=== PATIENT | female | born 2000 | race Caucasian/White ===

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

== ENCOUNTER 2021-04-02 10:25 | Emergency (ER) | payer OTHER, SELFPAY ==
[2021-04-02 10:28] VITALS: BP 146/89; PULSE 100; RESP 16; TEMP 36.6; O2SAT 100
[2021-04-02 10:50] LABS: Basophils Percent Auto 0.2 % (0.2-1.2); Eosinophils Percent Auto 0.5 % (0-4.4); Hematocrit 40.4 % (37.0-47.0); Hemoglobin 13.7 g/dL (12.0-15.0); Immature Granulocyte Absolute 0.02 K/mm3 (0.00-0.031); Immature Granulocyte Percent A 0.3 % (0-0.5); Lymphocytes Percent Auto 22.3 % (18.3-44.2); Mean Corpuscular HGB Conc 33.9 g/dl (32-36); Mean Corpuscular Hemoglobin 31.1 pg (26-34); Mean Corpuscular Volume 91.6 fl (80-100); Mean Platelet Volume 10.5 fl (7.4-10.4); Monocytes Absolute Auto 0.4 K/mm3 (0.1-0.6); Monocytes Percent Auto 5.7 % (2.6-8.5); Neutrophils Absolute Auto 4.5 K/mm3 (1.3-6.7); Platelet Count Result 206 k/mm3 (150-375); Red Blood Count 4.41 M/mm3 (4.2-5.4); Red Cell Distribution Width 12.7 % (11.5-14.5); White Blood Count 6.3 K/mm3 (4.5-10.0)
[2021-04-02 11:02] LABS: Alanine Aminotransferase 21 U/L (4-35); Albumin Level 4.2 g/dL (3.5-5.1); Alkaline Phosphatase 46 U/L (38-126); Anion Gap 11 mmol/L (8-16); Aspartate Amino Transferase 21 U/L (14-36); Bilirubin,Total 0.4 mg/dL (0.2-1.3); Blood Urea Nitrogen 5 mg/dL (7-17); Calcium 9.1 mg/dL (8.4-10.2); Carbon Dioxide 21 mmol/L (22-30); Chloride 104 mmol/L (98-107); Estimated CRCL calculation 143 ml/min; Estimated Glomerular Filt Rate > 60; Glucose 98 mg/dL (65-110); Lipase 32 U/L (23-300); Sodium 136 mmol/L (137-145)
[2021-04-02 11:29] LABS: Add Urine Microscopic? YES; Appearance Urine Cloudy (Clear); Bacteria Urine Trace /hpf; Bilirubin Urine Negative (Negative); Blood Urine Negative (Negative); Color Urine Yellow (Yellow); Glucose Urine UA Negative (Negative); Ketones Urine Negative (Negative); Leukocyte Esterase Ur Trace LEU/UL (Negative); Mucus Urine Rare /lpf; Nitrate Urine Negative (Negative); Protein Urine Negative (Negative); Squamous Epithelial Cell Urine Few /hpf (Few); Urobilinogen Urine Negative mg/dL (<2.0); WBC Urine 0-3 /hpf
--- NOTE | 2021-04-02 11:29 | ED.GENADULT ---
HPI - General Adult General Chief complaint: Nausea/Vomiting/Diarrhea Stated complaint: 8 weeks - N/V and cant eat Time Seen by Provider: 04/02/21 11:04 Source: patient Mode of arrival: ambulatory Limitations: no limitations History of Present Illness HPI narrative: Patient is here due to nausea and vomiting associated with . She states that the only thing she can keep down her fruit snacks. She last vomited last night because she has not eaten today. She was seen at [facility] with a positive test at 4 weeks and she had a positive test at home. She has a an appointment with her java scala developer on April 07. This is her third , she states that she had hyperemesis with her first, and significant nausea with her second. Onset (ago): day(s) Exacerbating factors: eating and other (smells) Associated symptoms: denies other symptoms Treatments prior to arrival: none Related Data Allergies Allergy/AdvReac Type Severity Reaction Status Date / Time amoxicillin Allergy Unknown Hives Verified 09/22/19 12:56 Penicillins Allergy Unknown Hives Verified 09/22/19 12:56 Review of Systems Review of Systems: All systems reviewed & are unremarkable except as noted in HPI and below PMFSH Family History Family History Father Asthma Social History Social History Smoking status: Never smoker Second hand tobacco smoke exposure: No Alcohol intake: never Substance use: never Spiritual care concerns: No Exam Const: General: no acute distress and alert Orientation/consciousness: patient oriented x3 HENMT: Head: normal to inspection Eyes: Pupils: Equal, round and reactive pupils present Resp: Effort & Inspection: normal respiratory effort Auscultation: clear to auscultation bilaterally Cardio: Rate: regular rate Rhythm: regular rhythm GI: GI Palp: Yes Soft to palpation Auscultation: normal bowel sounds : General: Yes no CVA tenderness Skin: General skin exam: normal color Neuro: General: patient oriented x3 Extrem: General: normal to inspection Psych: Mental Status: mental status grossly normal Course Course Emergency Course: Patient's OB has given her recommendations for nausea already. Recommend that she follow those recommendations and follow-up as scheduled. Eat small meals, avoid caffeinated beverages and sugary beverages. Stay well-hydrated. Patient has eaten some ishmael crackers and soda and is doing well and is ready to be discharged. Vital Signs Vital signs: Vital Signs Temperature 36.6 C 04/02/21 10:28 Pulse Rate 100 04/02/21 10:28 Respiratory Rate 16 04/02/21 10:28 Blood Pressure 146/89 H 04/02/21 10:28 Pulse Oximetry 100 04/02/21 10:28 Temperature 36.6 C 04/02/21 10:28 Pulse Rate 100 04/02/21 10:28 Respiratory Rate 16 04/02/21 10:28 Blood Pressure 146/89 H 04/02/21 10:28 Pulse Oximetry 100 04/02/21 10:28 Medical Decision Making Vital Signs Vital Signs: Vital Signs Temperature 36.6 C 04/02/21 10:28 Pulse Rate 100 04/02/21 10:28 Respiratory Rate 16 04/02/21 10:28 Blood Pressure 146/89 H 04/02/21 10:28 Pulse Oximetry 100 04/02/21 10:28 Temperature 36.6 C 04/02/21 10:28 Pulse Rate 100 04/02/21 10:28 Respiratory Rate 16 04/02/21 10:28 Blood Pressure 146/89 H 04/02/21 10:28 Pulse Oximetry 100 04/02/21 10:28 Lab Data Result diagrams: 04/02/21 10:36 04/02/21 10:36 Labs: Lab Results 04/02/21 04/02/21 04/02/21 Range/Units 10:36 10:36 10:36 WBC 6.3 (4.5-10.0) K/mm3 RBC 4.41 (4.2-5.4) M/mm3 Hgb 13.7 D (12.0-15.0) g/dL Hct 40.4 (37.0-47.0) % MCV 91.6 (80-100) fl MCH 31.1 (26-34) pg MCHC 33.9 (32-36) g/dl RDW 12.7 (11.5-14.5) % Plt Count 206 (150-375) k/mm3 MPV 10.5 H (7.4-10.4) fl Immature Gr
[2021-04-02] MEDS: SODIUM CHLORIDE 0.9% IV 1,000 ML 999 ML IV CONT (12:21)
[2021-04-02 12:24] VITALS: BP 115/65; PULSE 79; RESP 16; O2SAT 100
[2021-04-02 14:49] VITALS: BP 106/58; PULSE 77; RESP 16; O2SAT 100
== END 2021-04-02 14:49 | disposition home or self-care (01) ==
PROVIDERS: Emergency Provider Emergency Medicine
DX: O21.0 Mild hyperemesis gravidarum (principal)
CPT/HCPCS: 36415; 80053; 81001; 81025; 83690; 85025; 96360; 99283; J7030

== ENCOUNTER 2021-11-24 08:59 | Emergency (ER) | payer OTHER, SELFPAY ==
[2021-11-24 09:05] VITALS: BP 140/98; PULSE 59; RESP 20; TEMP 37; O2SAT 100
--- NOTE | 2021-11-24 09:44 | ED.SKABFB ---
HPI - Skin/Abscess/Foreign Bdy General Chief complaint: Skin/Abscess/Foreign Body Stated complaint: fb vagina Time Seen by Provider: 11/24/21 09:11 Source: patient Mode of arrival: ambulatory Limitations: no limitations History of Present Illness HPI narrative: This is a 21-year-old female that presents to the emergency department for possible foreign body in the vagina. Reports having intercourse early this morning. They were unable to find the condom, so she was concerned it may be stuck in her vagina. She does not report any pain or discomfort. Reports she thought that she smelled latex which prompted her to be seen to be sure she did not have a condom retained. Denies fever or dysuria. Related Data Allergies Allergy/AdvReac Type Severity Reaction Status Date / Time amoxicillin Allergy Unknown Hives Verified 11/24/21 09:10 Penicillins Allergy Unknown Hives Verified 11/24/21 09:10 Review of Systems Review of Systems: CONSTITUTIONAL: Denies fever GENITOURINARY: Denies dysuria All systems reviewed & are unremarkable except as noted in HPI and below PMFSH Past Medical History Medical History (Updated 11/24/21 @ 09:52 by Rosemarie Castillo PA-C) No active medical problems Family History Family History Father Asthma Social History Social History Smoking status: Never smoker Second hand tobacco smoke exposure: No Alcohol intake: never Substance use: never Spiritual care concerns: No Exam Narrative: GENERAL: Well-appearing, well-nourished, and in no acute distress. HEAD: Normocephalic, atraumatic. EYES: EOMI. EXTREMITIES: Normal range of motion. No edema. SKIN: Warm, dry, no rash. NEURO: No focal deficits. Alert and oriented x3. PSYCH: Normal mood and affect PELVIC: Normal external genitalia. The cervix appears normal. Small amount of clear cervical discharge. There are no foreign bodies noted in the vaginal vault Course Vital Signs Vital signs: Vital Signs Temperature 98.6 F 11/24/21 09:05 Pulse Rate 59 L 11/24/21 09:05 Respiratory Rate 11/24/21 09:05 Blood Pressure 140/98 H 11/24/21 09:05 Pulse Oximetry 100 11/24/21 09:05 Oxygen Delivery Room Air 11/24/21 09:05 Temperature 98.6 F 11/24/21 09:05 Pulse Rate 59 L 11/24/21 09:05 Respiratory Rate 20 11/24/21 09:05 Blood Pressure 140/98 H 11/24/21 09:05 Pulse Oximetry 100 11/24/21 09:05 Oxygen Delivery Room Air 11/24/21 09:05 MDM - Skin/Abscess/Foreign Bdy MDM Narrative Medical decision making narrative: Patient presents to the emergency department for a possible retained foreign body. She denies any pain or discomfort, but reports they could not find the condom to use last night so she was concerned it may be stuck inside her. No foreign bodies are noted on exam. Pelvic exam is normal. Patient was instructed to follow-up with her refueling ramp attendant for any further problems. She was given warnings to return to the ER Critical Care Time Critical Care Time Critical Care Time: No Discharge Plan Discharge Clinical Impression: Normal pelvic exam Patient Disposition: Home, Self-Care Condition: Stable Additional Instructions: Return to the emergency department for fevers, pelvic pain, pain or burning with urination, or any other symptoms that are concerning to you Follow-up with your refueling ramp attendant if needed Prescriptions: No Action polysaccharide iron complex 150 mg iron Capsule 150 mg PO BIDWM Qty: 60 1RF Follow-up/Referrals: PHYSICIAN NOT ON STAFF,NONSTAFF [Primary Care Provider] -
== END 2021-11-24 10:10 | disposition home or self-care (01) ==
PROVIDERS: Emergency Provider Emergency Medicine
DX: Z04.89 Encounter for examination and observation for other specified reasons (principal)
CPT/HCPCS: 99282

== ENCOUNTER 2022-02-05 20:39 | Emergency (ER) | payer OTHER, SELFPAY ==
--- NOTE | ~2022-02-05 | XR_ITS ---
EXAMINATION: XR chest 2V DATE: 02/05/2022 21:06 INDICATION: Chest pain, shortness of breath and left arm pain TECHNIQUE: PA and lateral views of the chest were obtained. COMPARISON: Chest radiograph dated 03/27/2020 FINDINGS: The lungs remain clear with no focal airspace opacities, pulmonary edema, pleural effusion or pneumot horax. The cardiomediastinal silhouette is normal. Visualized bones and soft tissues are unremarkable . IMPRESSION: 1. No acute cardiopulmonary disease. Reviewed, dictated and finalized at location A.
--- NOTE | 2022-02-05 20:42 | ECG_ITS ---
Measurements Intervals [place] Rate: 72 P: 22 NC: 128 QRS: 28 QRSD: 87 T: 30 QT: 389 QTc: 426 Interpretive Statements SINUS RHYTHM WITH SINUS ARRHYTHMIA BASELINE ARTIFACT- III, AVR, AVF, V3 NORMAL ECG NO PREVIOUS ECG AVAILABLE FOR COMPARISON Electronically Signed On 02-06-2022 6:48:02 CDT by Beau Hayden D.O.
[2022-02-05 20:51] VITALS: BP 141/99; PULSE 77; RESP 20; TEMP 36.9; O2SAT 100
[2022-02-05 20:56] LABS: Basophils Percent Auto 0.3 % (0.2-1.2); Eosinophils Absolute Auto 0.2 K/mm3 (0-0.3); Eosinophils Percent Auto 2.3 % (0-4.4); Hematocrit 38.9 % (37.0-47.0); Hemoglobin 12.6 g/dL (12.0-15.0); Immature Granulocyte Absolute 0.02 K/mm3 (0.00-0.031); Immature Granulocyte Percent A 0.3 % (0-0.5); Lymphocytes Percent Auto 32.7 % (18.3-44.2); Mean Corpuscular HGB Conc 32.4 g/dl (32-36); Mean Corpuscular Hemoglobin 28.1 pg (26-34); Mean Corpuscular Volume 86.8 fl (80-100); Mean Platelet Volume 10.8 fl (7.4-10.4); Monocytes Absolute Auto 0.4 K/mm3 (0.1-0.6); Monocytes Percent Auto 5.8 % (2.6-8.5); Neutrophils Absolute Auto 4.1 K/mm3 (1.3-6.7); Neutrophils Percent Auto 58.6 % (45.5-73.1); Platelet Count Result 269 k/mm3 (150-375); Red Blood Count 4.48 M/mm3 (4.2-5.4); Red Cell Distribution Width 14.6 % (11.5-14.5)
--- NOTE | 2022-02-05 21:16 | PC.NURSE ---
Addendum entered by Ivone Ponce RN 02/05/22 21:33: Pt came to intake nurse and stated that she has 2 kids at home and would not be able to stay for results. Pt a&Ox4, resp even non-labored, ambulatory with steady gait. No obvious distress noted. Pt verbalized understanding to come back if s/s persist or worsen. Original Note: Pt came to intake nurse a
[2022-02-05 21:27] LABS: Alanine Aminotransferase 12 U/L (6-35); Albumin Level 4.4 g/dL (3.5-5.1); Alkaline Phosphatase 55 U/L (38-126); Aspartate Amino Transferase 28 U/L (14-36); Bilirubin,Total 0.3 mg/dL (0.2-1.3); Blood Urea Nitrogen 13 mg/dL (7-17); Calcium 9.2 mg/dL (8.4-10.2); Carbon Dioxide 24 mmol/L (22-30); Chloride 106 mmol/L (98-107); Estimated CRCL calculation 112 ml/min; Estimated Glomerular Filt Rate > 60; Glucose 97 mg/dL (65-110); Potassium 3.7 mmol/L (3.4-5.0)
[2022-02-05 21:48] LABS: Anion Gap 6 mmol/L (8-16); Sodium 136 mmol/L (137-145)
== END 2022-02-05 21:16 | disposition left against medical advice (07) ==
PROVIDERS: Emergency Provider Emergency Medicine; PCP Orthopaedic Surgery
DX: R09.02 Hypoxemia (principal)
CPT/HCPCS: 36415; 71046; 80053; 85025; 93005; 99199

== ENCOUNTER 2024-01-28 16:23 | Emergency (ER) | payer OTHER, SELFPAY ==
[2024-01-28 16:30] VITALS: BP 115/85; PULSE 78; RESP 16; TEMP 36.6; O2SAT 98
--- NOTE | 2024-01-28 17:01 | ED.DENTAL ---
HPI - Dental/Oral General Chief complaint: Dental/Oral Stated complaint: right side face swollen Time Seen by Provider: 01/28/24 17:01 Mode of arrival: ambulatory Limitations: no limitations History of Present Illness HPI Narrative: 23-year-old female presents with concern for right lower dental pain. Reports she has had a broken tooth in that area for some time. Reports she recently started having facial swelling in that area and dental pain. Reports she took ibuprofen which decreased the swelling. MD Complaint: tooth pain Related Data Allergies Allergy/AdvReac Type Severity Reaction Status Date / Time amoxicillin Allergy Unknown Hives Verified 02/05/22 20:54 Penicillins Allergy Unknown Hives Verified 02/05/22 20:54 Review of Systems Review of Systems: CONSTITUTIONAL: Denies malaise, chills, sweats, or fever. EYES: Denies visual changes ENT: Denies rhinorrhea, congestion, sinus pain, otalgia or sore throat. Reports right lower dental pain, jaw swelling CARDIOVASCULAR: Denies chest pain, palpitations RESPIRATORY: Denies cough or dyspnea. SKIN: Denies rash or itching. MUSCULOSKELETAL: Denies myalgia. NEUROLOGIC: Denies numbness, weakness, or headache. All systems reviewed & are unremarkable except as noted in HPI and below PMFSH Past Medical History Medical History (Updated 01/28/24 @ 17:04 by Nereida Barahona NP) No active medical problems Family History Family History Father Asthma Social History Social History Smoking status: Never smoker Second hand tobacco smoke exposure: No Alcohol intake: never Substance use: never Spiritual care concerns: No Comments At time of signature, agree with nursing past medical, surgical, social and family history. There is no relevant family history pertinent to the presenting complaint Exam Narrative: GENERAL: Well-appearing, well-nourished, and in no acute distress. HEAD: Normocephalic, atraumatic. EYES: PERRLA, sclera clear ENT: Nares clear, turbinates pink, no rhinorrhea or epistaxis. Mucous membranes moist. TM pearly shaffer with sharp light reflex bilaterally; no tragal tenderness. Oropharynx without erythema or lesions. Tonsils not enlarged and without exudate. To is number 29 broken with surrounding erythema, no periapical or gingival abscesses noted. Very mild right jaw swelling noted NECK: Supple. No lymphadenopathy. CHEST: No respiratory distress. Speaks in full sentences. HEART: Regular rate and rhythm. SKIN: Warm, dry, no visible rash. NEURO: Alert and oriented x3. PSYCH: Normal mood and affect Course Course Emergency Course: Patient is aware of diagnosis, understands and agrees to treatment plan. Anticipatory guidance given. Patient agrees to follow-up as directed and is aware of reasons to seek care at the emergency department. Portions of this record may have been created with voice recognition software Level of Care: Express Care Visit Vital Signs Vital signs: Vital Signs Temperature 98 F 01/28/24 16:30 Pulse Rate 78 01/28/24 16:30 Respiratory Rate 16 01/28/24 16:30 Blood Pressure 115/85 01/28/24 16:30 Pulse Oximetry 98 01/28/24 16:30 Oxygen Delivery Room Air 01/28/24 16:30 Temperature 98 F 01/28/24 16:30 Pulse Rate 78 01/28/24 16:30 Respiratory Rate 16 01/28/24 16:30 Blood Pressure 115/85 01/28/24 16:30 Pulse Oximetry 98 01/28/24 16:30 Oxygen Delivery Room Air 01/28/24 16:30 Reviewed. MDM - Dental/Oral MDM Narrative Medical decision making narrative: I evaluated this in the [facility] care. History is obtained from patient who is an independent historian and physical exam was performed.? Available medical records were reviewed. ? Exam findings and relevant testing show no acute concerns or changes; patient is non-toxic appearing and is in no distress. Patients
== END 2024-01-28 17:13 | disposition home or self-care (01) ==
PROVIDERS: Emergency Provider Nurse Practitioner
DX: K08.89 Other specified disorders of teeth and supporting structures (principal)
CPT/HCPCS: 99213; G0463

== ENCOUNTER 2024-09-17 15:24 | Emergency (ER) | payer OTHER, SELFPAY ==
--- OUTSIDE RECORDS SUMMARY | 2024-09-17 15:26 | XMS_ITS | Encounter Summary ---
Author Organization [facility] Address [address] 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 Social History Tobacco Use Types Packs/Day Years Used Date Smoking Tobacco: Never Assessed Comments Unknown Sex and Gender Information Value Date Recorded Sex Assigned at Not on file Legal Sex Female 11:42 AM CDT Gender Identity Not on file Sexual Orientation Not on file documented as of this encounter Plan of Treatment Not on file documented as of this encounter Procedures Procedure Name Priority Date/Time Associated Diagnosis Comments QUANTIFERON-TB GOLD PLUS Routine 01/26/2024 10:00 AM CDT Encounter for pre-employment examination documented in this encounter Results * QUANTIFERON-TB GOLD PLUS (01/26/2024 10:00 AM CDT) NIL CONTROL 0.02 <8.01 IU/mL 01/28/2024 9:54 AM CDT [facility] TB ANTIGEN 1 0.03 <0.35 IU/mL 01/28/2024 9:54 AM CDT [facility] TB ANTIGEN 2 0.00 <0.35 IU/mL 01/28/2024 9:54 AM CDT [facility] MITOGEN CONTROL 9.98 >0.49 IU/mL 01/28/20 9:54 AM CDT [facility] INTEPRETATION TB NEGATIVE NEGATIVE, NEGATIVE (TB antigen response less than 25% of internal negative control value) 01/28/2024 9:54 AM CDT [facility] Comment:No immune response t o Mycobacterium tuberculosis antigens was noted. M. tuberculosis infection unlikely. Blood No Phlebotomy Charged / Unknown 01/26/2024 10:00 AM CDT 01/26/2024 12:32 PM CDT Narrative [facility] - 01/28/2024 9:54 AM CDT A POSITIVE QUANTIFERON-TB GOLD PLUS RESULT SHOULD NOT BE THE SOLE OR DEFINITIVE BASIS FOR DETERMINING INFECTION WITH M.TUBERCULOSIS. Diagnosing or excluding tuberculosis disease, and assessing the probability of LTBI, requires a combination of epidemiological, historical, medical and diagnostic findings (e.g., acid fast bacilli (AFB) smear and culture, chest xray) that should be taken into account when interpreting QFT-Plus results. Furthermore, the magnitude of the measured gamma interferon level cannot be correlated to stage or degree of infection, level of immune responsiveness, or likelihood for progression to active disease. The Nil control adjusts for background (e.g., elevated levels of circulating gamma interferon or presence of heterophile antibodies). The Mitogen control serves as an internal positive control and verifies each specimen tested can produce a gamma interferon response. Low mitogen may occur with insufficient lymphocytes, reduced lymphocyte activity due to improper specimen handling, filling/mixing of the mitogen tube, or inability of the patient's lymphocytes to generate gamma interferon. Infection with other Mycobacteria, including M. kansasii, M. szulgai, and M. marinum, may cause false positive results. A negative QuantiFERON-TB Gold Plus result does not preclude the possibility of M. tuberculosis infection or tuberculosis disease: false negative results can be due to incorrect blood sample collection/ improper handling of the specimen, stage of infection (e.g., specimen obtained prior to the development of cellular immune response), co-morbid conditions which affect immune function, or other individual immunological factors. The minimum number of lymphocytes required for a reliable test has not been established and may also be variable. Diagnostic testing for Mycobacterium tuberculosis using Interferon Gamma Release Assays should follow applicable published guidelines, including when testing in populations such as children, women, and HIV-infected or otherwise immunocompromised individuals. https://www.cdc.gov/tb/publications/guidelines/testing.htm [place] Panda Navarrete [facility] IMMUNOLOGY ORDERABLES Final Result [facility] [address] [place] [address], documented in this encounter Visit Diagnoses Diagnosis Encounter for pre-employment examination Health examination of defined subpopulation documented in this encounter Care Teams Educational Resource Coordinator Relationship Specialty Start Date End Date Provider, Unknown UNKNOWN PCP - General 01/26/24 documented as of this encounter
--- OUTSIDE RECORDS SUMMARY | 2024-09-17 15:26 | XMS_ITS | CONTINUITY OF CARE DOCUMENT ---
Author Name linus barriga Address Unknown Organization [facility] Address [address] [place] [address] Phone [phone] Care Team Providers Care Heel Cementer Name Role Phone Byron Ponce MD Unavailable [phone] Byron Ponce MD Unavailable [phone] INSURANCE PROVIDERS Payer name Policy type / Coverage type Adia red libertarian ID [employer] [facility] Medicaid [id number]
--- OUTSIDE RECORDS SUMMARY | 2024-09-17 15:26 | XMS_ITS | Clinical Summary ---
Author Organization [facility] Address [address] [place] [address] Phone Care Team Providers Care Manager Revenue Name Role Phone Provider, Unknown Primary Care Provider Unavaila ble Social History Tobacco Use Types Packs/Day Years Used Date Smoking Tobacco: Never Assessed Comments Unknown Sex and Gender Information Value Date Recorded Sex Assigned at Not on file Legal Sex Female 11:42 AM CDT Gender Identity Not on file Sexual Orientation Not on file Plan of Treatment Health Maintenance Due Date Last Done Comments Hepatitis C Virus (HCV) Screening 2000 Hepatitis B Immunization (2 of 3 - 3-dose series) 2000 2000 Human Papillomavirus (HPV) Immunization (1 - 3-dose series) 09/15/2015 Meningococcal B Immunization (1 of 2 - Standard) 2016 Pap Smear 2021 Influenza Immunization (#1) 02/06/202406/07, 03/18/2015 SARS-COV-2 Immunization ( season) 2024 Respiratory Syncytial Virus (RSV) Immunization (Adult) (1 - 1-dose 75+ series) 09/15/2075 Pneumococcal Immunization Combined Aged Out 2000 No longer eligible b ased on patient's age to complete this topic TdaP Immunization Completed 09/01/2021, 07/04/2015 Meningococcal Immunization (ACWY) Aged Out No longer eligible b ased on patient's age to complete this topic Rotavirus Immunization Aged Out No lo nger eligible based on patient's age to complete this topic Care Teams Manager Revenue Relationship Specialty Start Date End Date Provider, Unknown UNKNOWN PCP - General 01/26/24
--- OUTSIDE RECORDS SUMMARY | 2024-09-17 15:29 | XMS_ITS | Clinical Summary ---
Author Organization [facility] Address [address] [place] [address] Care Team Providers Care Nurse Sane Name Role Phone Arturo Lion MD Primary Care Provider [phone] Source Comments [facility],non-owned Affiliates and Associated Physician Practices is amultiple site organization consisting of ambulatory clinics and hospital sitesin [place], [place], [place] and [place]. This disclosure is being madepursuant to the Care Everywhere program and may not contain all information available regarding this patient. Last updated 18.[facility] Allergies Active Allergy Reactions Criticality Noted Date Comments Amoxicillin Rash Low 07/14/2012 Medications * Be aware that medications may not be up to date on this document. Alwaysverify current medications with the patient. 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 Gender Identity Not on file Sexual Orientation Not on file Plan of Treatment Health Maintenance Due Date Last Done Comments PAP SMEAR 2000 HIV SCREENING 09/15/2015 HPV VACCINE (1 - 3-dose series) 09/15/2015 CHLAMYDIA/GONORRHEA SCREENING 2016 MENINGOCOCCAL (Group B) VACC INE SHARED DECISION-MAKING (1 of 2 - Standard) 2016 HEPATITIS C SCREENING 09/10/2018 DTAP/TDAP/TD VACCINES (1 - Tdap) 09/15/2019 HEPATITIS B VACCINE (1 of 3 - 19+ 3-dose series) 09/15/2019 COVID-19 VACCINE ( - 2023-2 5 season) 2024 DEPRESSION SCREENING 06/07/2024 INFLUENZA VACCINE (Season Ended) 2025 ZOSTER VACCINE (1 of 2) 2050 HIB VACCINE Aged Out No longer eligi ble based on patient's age to complete this topic MENINGOCOCCAL GROUPS A/C/Y/W VACCINE Aged Out No longer eligible b ased on patient's age to complete this topic PNEUMOCOCCAL VACCINE Aged Out No long er eligible based on patient's age to complete this topic Insurance [employer] Care Teams Nurse Sane Relationship Specialty Start Date End Date Arturo Lion MD [address] [place] [address] PCP - General Family Medicine 07/14/12
--- OUTSIDE RECORDS SUMMARY | 2024-09-17 15:29 | XMS_ITS | Data Portability ---
Author Organization [facility] [place] Address [address] [place] [address] Assessment Encounter Date Assessment Date Assessment LastModified by Organization Details LastModified Time 09/22/2019 09/22/2019 Patient is ___weeks . Discussed plan. [email or web address] Not available 09/22/2019 09:41:10 07/03/2020 07/03/2020 STD testing done per patient preference Rx: diflucan will restart ocp. microgestin sent. encouraged condoms. Will notify with any abnormal results Call office if symptoms worsening or not improving with treatment Follow up for WWE in 1 year [email or web address] Not available 07/03/2020 12:24:02 Plan of Treatment Reminders Order Date Submit Date Provider Last Modified By Organization Details Last Modified Time Details Appointments None recorded. Lab CT + NG DNA, PCR, unspecifie d specimen 2020 021 [place] [facility] ([facility]), [address], [place], [address], 09:06:31 Referral None recorded. Procedures None recorded. Surgeries None recorded. Imaging None recorded. Medication Orders Diflucan 150 mg tablet 2020 021 [id number], [address] [place] [address], [address], 12:21:17 Microgesti n FE 06/26 (28) 1 mg-20 mcg (21)/75 mg (7) tablet 2020 021 [email or web address] [id number], [address], [place], [address], 22:37:16 Loestrin Fe 06/26 (28-Day) 1 mg-20 mcg (21)/75 mg (7) tablet 2019 [facility]20 [id number], [address], [place], [place], [id number], 12:02:49 Patient TargetsNo targets recorded. Patient InstructionsNo instructions recorded. Reason for Referral None Reported. Results Created Date Observation Date Name Description Value Unit Range Abnormal Flag Note LastModifiedBy Organization Detail LastModifiedTime 09/13/1909/14/2019 prena mildred panel WBC 7.1 K/uL 3.8-11 .5 Not Available [facility] ([facility]) [address] [place] [address] Dr Contreras, [place], [address], 2019 17:05:53 09/13/1909/14/2019 prena mildred panel red blood cell count (RBC) 4.03 M/mm3 3.60-5 .30 Not Available [facility] ([facility]) [address] [place] [address] Dr Contreras, [place], [address], 2019 17:05:53 09/13/1909/14/2019 prena mildred panel hemoglobin (HGB) 12.5 gm/dL 11.5-1 5.5 Not Available [facility] ([facility]) [address] [place] [address] Dr Contreras, [place], [address], 2019 17:05:53 09/13/19 20 2019 prena mildred panel hematocrit (HCT) 37.9 % 35.2-4 6.4 Not Available [facility] ([facility]) [facility] [address], [place], [address], 2019 17:05:53 09/13/19 20 2019 prena mildred panel MCV 94.0 fL 79.0-9 9.0 Not Available [facility] ([facility]) [address] [place] [address] Dr Contreras, [place], [address], 2019 17:05:53 09/13/19 20 2019 prena mildred panel MCH 31.0 pg 26.9-3 5.0 Not Available [facility] ([facility]) [address] [place] [address] Dr Contreras, [place], [address], 2019 17:05:53 09/13/19 20 2019 prena mildred panel MCHC 33.0 g/dL 30.4-3 4.8 Not Available [facility] ([facility]) [address] [place] [address] Dr Contreras, [place], [address], 2019 17:05:53 09/13/1909/14/2019 prena mildred panel RDW 43.0 fL 38.6-5 3.8 Not Available [facility] ([facility]) [address] [place] [address] Dr Contreras, [place], [address], 2019 17:05:53 09/13/1909/14/2019 prena mildred panel platelet count 235 K/cum m 137-39 7 Not Available [facility] ([facility]) [address] [place] [address] Dr Contreras, [place], [address], 2019 17:05:53 09/13/19 20 2019 prena mildred panel neutrophils automated 72.0 % 41.0-7 7.0 Not Available [facility] ([facility]) [address] [place] [address] Dr Contreras, [place], [address], 2019 17:05:53 09/13/19 20 2019 prena mildred panel lymphocytes automated 21.7 % 14.0-4 8.0 Not Available [facility] ([facility]) [address], [place], [address], 2019 17:05:53 09/13/19 20 2019 prena mildred panel monocytes automated 5.4 % 4.0-13 .0 Not Available [facility] ([facility]) [address], [place], [address], 2019 17:05:53 09/13/19 20 2019 prena mildred panel eosinophils automated 0.3 % 0.0-8. 0 Not Available [facility] ([facility]) [facility] [address], [place], [address], 2019 17:05:53 09/13/19 20 2019 prena mildred panel basophils automated 0.3 % 0.0-1. 5 Not Available [facility] ([facility]) [address] [place] [address] Dr Contreras, [place], [address], 2019 17:05:53 09/13/19 20 2019 prena mildred panel immature granulocyte automated 0.3 % 0.0-1. 0 Not Available [facility] ([facility]) [address] [place] [address] Dr Contreras, [place], [address], 2019 17:05:53 09/13/19 20 2019 prena mildred panel ABO type, blood bank A Not Available [facility] ([facility]) [address] [place] [address] Dr Contreras, [place], [address], 2019 17:05:53 09/13/19 20 2019 prena mildred panel Rh typing, blood bank POSITI VE RH testi ng resul ts (RH Posit arielle/R H Negat arielle) are depen dent upon reage nt formu latio ns, techn ical perfo rmanc e of assay , and testi ng platf orm or metho dolog y. With the elimi natio n of routi ne testi ng for the weak expre ssion of the D antig en, some patie nts who have previ ously been class ified as RH Posit arielle many now be repor marie as RH Negat arielle, or rarel y, vice versa . If you have any quest ions regar ding this test, pleas e call our Clien t Servi vj depar tment . Not Available [facility] ([facility]) [facility] [address], [place], [address], 2019 17:05:53 09/13/1909/14/2019 prena mildred panel antibody screen, reflex to identificati on NEGATI VE negati ve Not Available [facility] ([facility]) [address] [place] [address] Dr Contreras, [place], [address], 2019 17:05:53 09/13/19 20 2019 prena mildred panel rubella antibody, IgG 68.9 IU/mL >9.9 INTER PRETA TION OF RESUL TS < 10.0 Non-i mmune /Non- react arielle >= 10.0 Immun e/Willow ctive Prese nce of antib odies to Rubel la is presu mptiv e evide nce of immun ity excep t when acute infec tion is suspe cted. Not Available [facility] ([facility]) [facility] [address], [place], [address], 2019 17:05:53 09/13/19 20 2019 prena mildred panel hemoglobin A1C 4.5 % <5.7 The follo wing HbA1c range s recom kasia d by the Alonzo ceballos Diabe lillian Assoc iatio n (ADA) may be used as an aid in the diagn osis of diabe lillian melli tus. HA1c Sugge sted Diagn osis >=6.5 % Diabe tic 5.7% - 6.4% Pre-D iabet ic <5.7% Non-D iabet ic Not Available [facility] ([facility]) [address] [place] [address] Dr Contreras, [place], [address], 2019 17:05:53 09/13/19 20 2019 prena mildred panel HIV 1/2 Ab screen w/p24ag Nonrea ctive nonrea ctive Not Available [facility]) [address] [place] [address] Dr Contreras, [place], [address], 2019 17:05:53 09/13/19 20 2019 prena mildred panel hepatitis B surface antigen (HBsAg) Nonrea ctive nonrea ctive Not Available [facility] ([facility]) [address] [place] [address] Dr [address]reras, [place], [address], 2019 17:05:53 09/13/19 20 2019 prena mildred panel hepatitis C antibody (HCV) IgG Nonrea ctive nonrea ctive Not Available [facility] ([facility]) [address] [place] [address] Dr [address]reras, [place], [address], 2019 17:05:53 09/13/19 20 2019 prena mildred panel syphilis screening profile, treponemal antibody Nonrea ctive nonrea ctive Not Available [facility] ([facility]) [address] [place] [address] Dr Contreras, [place], [address], 2019 17:05:53 09/13/19 20 2019 estim ated avera ge gluco se estimated average glucose 82 mg/dL [place] ge Gluco se is calcu lated using the equat ion AG = (28.7 x HgbA1 c) - 46.7 based on the guide lines estab ang terrell by the ADA. Not Available [facility] ([facility]) [address], [place], [address], 2019 17:05:53 09/13/1909/15/2019 cultu re, urine specimen source Urine - Not Specif ied Not Available [facility] ([facility]) [facility] [address], [place], [address], 09/19/2019 09:16:28 09/13/1909/15/2019 cultu re, urine culture, urine See Below See Micro biolo gy Repor t Not Available [facility] ([facility]) [facility] [address], [place], [address], 09/19/2019 09:16:28 09/13/1909/15/2019 cultu re, urine escherichia coli >100,0 00 CFU/ml Escher ichia coli Not Available [facility] ([facility]) [facility] [address], [place], [address], 09/19/2019 09:16:28 09/13/1909/15/2019 cultu re, urine sensitivity panel See Below ___ Organ ism E. coli Antib iotic INTER P ___ Amika medhat S Amp/S ulbac meier S Ampic illin S Aztre onam S Cefaz soraida S Cefep thong S Cefox itin S Cefta zidim e S Ceftr iaxon e S Cefur oxime S Cipro floxa medhat S Ertap enem S Genta micin S Imipe nem S Levof loxac in S Merop enem S Nitro furan toin S Piper acill in/Ta zo S Tetra cycli ne S Tigec yclin e S Tobra mycin S Trime th/Wisdom lfa S __ S=LUIS A CEPTI BLE I=INT ERMED IATE R=RES ISTAN T Not Available [facility]) [address] [place] [address], [place], [address], 09/19/2019 09:16:28 09/13/1909/13/2019 drug scree n, urine Amphetamines : negati ve Not Available [place] [address], [place], [address], 09/13/2019 12:46:16 09/13/1909/13/2019 drug scree n, urine Cannabinoids : negati ve Not Available [place] [address], [place], [address], 09/13/2019 12:46:16 09/13/1909/13/2019 drug scree n, urine Cocaine: negati ve Not Available [place] [address], [place], [address], 09/13/2019 12:46:16 09/13/19 20 09/13/2019 drug scree n, urine Opiates: negati ve Not Available [place] [address], [place], [address], 09/13/2019 12:46:16 09/13/19 20 09/13/2019 drug scree n, urine Phenocyclidi ne: negati ve Not Available [place] [address], [place], [address], 09/13/2019 12:46:16 09/13/19 20 09/13/2019 drug scree n, urine Barbiturates : negati ve Not Available [place] [address], [place], [address], 09/13/2019 12:46:16 09/13/19 20 09/13/2019 drug scree n, urine Benzodiazepi ada: negati ve Not Available [place] [address], [place], [address], 09/13/2019 12:46:16 09/22/19 20 09/25/2019 strep tococ cus group B DNA GB specimen source Vagina l/Rect al Not Available [facility] ([facility]) [address], [place], [address], 09/25/2019 12:06:14 09/22/19 20 09/25/2019 strep tococ cus group B DNA spec type Cultur e Swab Not Available [facility] ([facility]) [address], [place], [address], 09/25/2019 12:06:14 09/22/19 20 09/25/2019 strep tococ cus group B DNA group B strep by PCR NOT DETECT ED not detect ed Inter preta tion: A posit arielle resul t indic ates the detec tion of Group B Strep tococ cus DNA but not neces saril y the prese nce of viabl e organ isms; it is presu mptiv e for the prese nce of Group B Strep tococ cus. A negat arielle resul t does not exclu de the possi bilit y of infec tion since very low level s of micro organ ism or sampl ing error may cause a false negat arielle resul t. This assay is highl y accur ate, but rare false posit arielle and false negat arielle resul ts may occur . Metho dolog y: This resul t was deter mined using the FDA-c leare d BD Max GBS Assay . The BD Max GBS Assay is a quali tativ e in vitro diagn ostic test for the rapid detec tion of Group B Strep tococ cus (GBS) DNA in vagin al/re ctal speci mens from prepa rtum or intra partu m women utili zing real- time PCR. Perfo rmed by [facility]a [facility], [address], [place] [address] , Manolo Pulliam ra, DO, Labor atory Dire tor. Not Available [facility]) [address], [place], [address], 09/25/2019 12:06:14 08/14/19 21 08/13/2020 beta- HCG, quant itati ve, serum or plasm a B-HCG <0.2 mIU/m L This assay was perfo rmed using [employer] reage nts and test kits. Value s obtai ramon with other assay metho ds or kits canno t be used inter cid eably . Refer ence Range s: Non-p regna nt, preme nopau gen women : 0.0-5 .3 mIU/m L Preme nopau gen women : 0.0-7 .0 mIU/m L Stephany l Pregn mitchell: Gesta neida l Age bHCG Conc. - mIU/m L 3 Weeks 5.8 - 71.7 4 Weeks 9.5 - 750 5 Weeks 217-7 138 6 Weeks 158 - 31,79 5 7 Weeks 3,697 - 162,5 63 8 Weeks 32,06 5 - 149,5 71 9 Weeks 63,80 3 - 151,4 10 10 Weeks 46,50 9 - 186,9 77 12 Weeks 27,83 2 - 210,6 12 14 Weeks 13,95 0 - 62,53 0 15 Weeks 12,03 9 - 70,97 1 16 Weeks 9,040 - 56,45 1 17 Weeks 8,175 - 55,86 8 18 Weeks 8,099 - 58,17 6 Not Available [facility] (Lab) [address], [place], [address], 08/14/2020 14:11:58 08/14/19 21 08/13/2020 beta- HCG, quant itati ve, serum or plasm a B-HCG <0.2 mIU/m L This assay was perfo rmed using [employer] reage nts and test kits. Value s obtai ramon with other assay metho ds or kits canno t be used inter cid eably . Refer ence Range s: Non-p regna nt, preme nopau gen women : 0.0-5 .3 mIU/m L Preme nopau gen women : 0.0-7 .0 mIU/m L Stephany l Pregn mitchell: Gesta neida l Age bHCG Conc. - mIU/m L 3 Weeks 5.8 - 71.7 4 Weeks 9.5 - 750 5 Weeks 217-7 138 6 Weeks 158 - 31,79 5 7 Weeks 3,697 - 162,5 63 8 Weeks 32,06 5 - 149,5 71 9 Weeks 63,80 3 - 151,4 10 10 Weeks 46,50 9 - 186,9 77 12 Weeks 27,83 2 - 210,6 12 14 Weeks 13,95 0 - 62,53 0 15 Weeks 12,03 9 - 70,97 1 16 Weeks 9,040 - 56,45 1 17 Weeks 8,175 - 55,86 8 18 Weeks 8,099 - 58,17 6 Not Available [facility] (Lab) [address], [place], [address], 08/15/2020 09:49:53 09/16/19 20 09/13/2019 US, obste tric, 2nd or 3rd trime ster No observ ation record ed. [email or web address] Not Available 0 09/19/2019 18:03:49 Result Notes None recorded. Problems Name Problem SNOMED Code Status Onset Date Resolution Date Notes Provider Name and Address Organization Details Recorded Time Pregnanc y, childbir th and puerperi um finding Completed 201407/03/2020 Encounte r for supervis ion of normal first pregnanc y, second trimeste r;Record ed Elsewher e: No Locat ion: [facility] S ource: EHR Md Do [facility] christiano: N Practi ce ID: 0001 Eric lable Time: 04:45:00 PM Kimberley maxwell [facility] 1 12:03:18 Pregnanc y, childbir th and puerperi um finding Completed 201507/03/2020 Encounte r for supervis ion of normal first pregnanc y, third trimeste r;Record ed Elsewher e: No Locat ion: [facility] S ource: EHR Md [facility]: N Practi ce ID: 0001 Eric lable Time: 04:30:00 PM Kimberley maxwell [facility] 1 12:03:20 Speciali zed medical examinat ion Completed 201407/03/2020 Gynecolo gical Examinat ion;Juan José rded Elsewher e: No [facility]: N Practi ce ID: 0001 Eric lable Time: 11:00:00 AM Kimberley maxwell [facility] 1 12:03:27 Lochia finding Completed 201507/03/2020 Encounte r for routine postpart um follow-u p;Record ed Elsewher e: No Locat ion: [facility] S ource: EHR Md [facility]: N Practi ce ID: 0001 Eric lable Time: 02:30:00 PM Kimberley maxwell [facility] 1 12:03:14 Antenata l screenin g Completed 201407/03/2020 ANTENATA L SCREENIN G NEC;Juan José rded Elsewher e: No Locat ion: [facility] rodolfo [facility] S ource: EHR Md Do [facility]: N Practi ce ID: 0001 Eric lable Time: 04:00:00 PM Kimberley maxwell [facility] 1 12:03:09 Amenorrh ea [id number] Completed 201407/03/2020 Absence of menstrua tion;Rec orded Elsewher e: No Locat ion: [facility] S ource: EHR Md [facility]: N Practi ce ID: 0001 Eric lable Time: 11:00:00 AM Kimberley maxwell [facility] 1 12:03:08 Pregnanc y test positive [id number] Completed 201407/03/2020 Pregnanc y examinat ion or test, positive result;R ecorded Elsewher e: No Locat ion: [facility] S ource: EHR Md Do [facility]: N Practi ce ID: 0001 Eric lable Time: 11:00:00 AM Kimberley maxwell [facility] 1 12:03:17 Primigra ayana [id number] Completed 201407/03/2020 Supervis ion of normal first pregnanc y;Record ed Elsewher e: No Locat ion: [facility] S ource: EHR Md [facility]: N Practi ce ID: 0001 Eric lable Time: 10:30:00 AM Kimberley maxwell [facility] 1 12:03:24 Prematur e rupture of membrane s [id number] Completed 201507/03/2020 Full-ter m cristin ROM, unsp time betw rupture and onset labor;Pr actice ID: 0001 Kimberley maxwell [facility] 1 12:03:21 Gestatio n period, 38 weeks [id number] Completed 201507/03/2020 38 weeks gestatio n of pregnanc y;Practi ce ID: 0001 [facility] 12:03:11 Term pregnanc y delivere d [id number] Completed 201507/03/2020 Encounte r for full-ter m uncompli cated delivery ;Practic e ID: 0001 Kimberley Jurado [facility], [facility] 1 12:03:29 Single live [id number] Completed 201507/03/2020 Single live ;Pr actice ID: [address] [facility] 1 12:03:25 Pregnanc y [id number] Completed 201905/22/[address] [facility] 0 16:39:58 Late entry into care [id number] Completed [address] [facility] 0 16:39:55 Obesity [id number] Completed 201909/19/2019 Reviewed with SB- not really obese. No need for NSTs. Olivia Saunders [facility] 0 11:55:15 Late entry into care [id number] Completed 201907/03/[address] [facility] 1 12:03:12 Problem Notes None recorded. Procedures Surgical History None recorded. Imaging Results Imaging Date Name Status LastModified by Organiz ation Details LastModified Time 09/13/2019 US, obstetric, 2nd or 3rd trimester completed axel Information not available 09/19/2019 18:03:49 Procedure Notes None recorded. Medical Equipment None Reported. Allergies Allergen ID Allergen Name Allergen Category Reaction Reaction Severity Criticality Documentation Date Start Date Code Code System Note Provider Name and Address Organization Details Recorded Time 47 amoxicill in medicatio n Not available Not available Not available 09/13/2019 723 RxNorm Елена Martell h[place], [place] - [facility] 0 12:17:52 Medications Name Sig Start Date Stop Date Status Note LastModified by Organization Details LastModified Time cyclobenz aprine 10 mg tablet TAKE ONE TABLET BY MOUTH 3 TIMES DAILY 07/03 completed Not Available Not Available Not Available azithromy medhat 250 mg tablet 09/12 completed Not Available Not Available Not Available ibuprofen 800 mg tablet TAKE 1 TABLET BY MOUTH EVERY 8 HOURS NEEDED FOR PAIN AND INFLAMMA TION 07/03 completed Not Available Not Available Not Available Lidocaine Viscous 2 % mucosal solution PLEASE SEE ATTACHED FOR DETAILED DIRECTIO NS 07/03 completed Not Available Not Available Not Available fluconazo le 150 mg tablet TAKE 1 TABLET BY MOUTH ONCE FOR ONE DOSE active Not Available Not Available No t Available clindamyc in HCl 150 mg capsule TAKE 3 CAPSULES BY MOUTH 3 TIMES A DAY active Tooth infectio n Not Available Not Available Not Available Macrobid 100 mg capsule take 1 capsule by oral route every 12 hours with food 07/03 completed Prescrib ed Elsewher e: No Locat ion: [facility] M odify By: sailaja barajas DateTime : 02/26/20 15 04:34:15 PM Not Available Not Available Not Available cephalexi n 500 mg capsule Take 1 capsule twice a day by oral route for 7 days. 12/06 completed Not Available Not Available Not Available oseltamiv ir 75 mg capsule 09/12 completed Not Available Not Available Not Available Vitamin D2 1,250 mcg (50,000 unit) capsule take 1 capsule by oral route every week 07/03 completed Prescrib ed Elsewher e: No Locat ion: [facility] M odify By: sailaja barajas DateTime : 06/13/19 16 02:56:55 PM Not Available Not Available Not Available griseoful elijah ultramicr osize 250 mg tablet active Not Available Not Available No t Available 06/26 (28) 1 mg-20 mcg (21)/75 mg (7) tablet TAKE 1 TABLET BY MOUTH EVERY DAY active Not Available Not Available No t Available WHITESMITH-PNV-DH A 28 mg iron-1 mg-200 mg capsule take 1 capsule by oral route every day 07/03 completed Prescrib ed Elsewher e: No Locat ion: [facility] M odify By: cmedical Encount er DateTime : 01/19/20 15 03:35:33 PM Not Available Not Available Not Available Vitals Date Recorded Body height Body mass index (BMI) Body mass index (BMI) Percentile per age and sex Body weight Systolic blood pressure Diastolic blood pressure Provider Name and Address Organization Details Last Updated DateTime 0 162.56 cm 35.9 kg/m2 98 % 19561.8 0533 g 110 mm[Hg] 72 mm[Hg] Елена Martell [facility] 0 09:45:22 Date Recorded Body height Body mass index (BMI) Percentile per age and sex Body mass index (BMI) Systolic blood pressure Diastolic blood pressure Provider Name and Address Organization Details Last Updated DateTime 12/07/2019 162.56 cm 97 % 34.3 kg/m2 127 mm[Hg] 82 mm[Hg] [facility] 0 12:48:11 Date Recorded Body weight Provider Name an d Address Organization Details Last Updated DateTime 12/07/2019 33677.474 g Blas Lim [facility] 05/22/2020 16:39:55 Date Recorded Body height Body mass index (BMI) Percentile per age and sex Body mass index (BMI) Body weight Systolic blood pressure Diastolic blood pressure Provider Name and Address Organization Details Last Updated DateTime 0 162.56 cm 98 % 35.9 kg/m2 43900.8 0533 g 120 mm[Hg] 79 mm[Hg] [facility] 0 10:25:11 Date Recorded Body height Body mass index (BMI) Percentile per age and sex Body mass index (BMI) Body weight Systolic blood pressure Diastolic blood pressure Provider Name and Address Organization Details Last Updated DateTime 0 162.56 cm 98 % 36 kg/m2 97038.3 977 g 111 mm[Hg] 71 mm[Hg] Aisha Asher [facility] 0 10:19:10 Date Recorded Body height Body mass index (BMI) Percentile per age and sex Body mass index (BMI) Body weight Systolic blood pressure Diastolic blood pressure Provider Name and Address Organization Details Last Updated DateTime 1 162.56 cm 98 % 37.6 kg/m2 77461.7 3 g 119 mm[Hg] 83 mm[Hg] Kimberley Jurado [facility] 1 12:02:46 Social History Question Answer Notes LastModified by [employer] Details LastModified Time Tobacco Smoking Status Never Smoker Not Available [facility] 04/09/2020 03:28:11 What Is Your Level Of Alcohol Consumption? None [id number] Information not available 04/09/2020 Sex: Unknown Functional Status Question Answer Note LastModified by [employer] Details LastModified Time What is your exercise level? Occasional walking [id number] Information not available 04/09/2020 Mental Status None recorded. Family History Relationship Description Onset Age of this Age Resolved Age Notes LastModified by Organization Details LastModified Time Father Asthma [email or web address] Not available 08:58:30 Maternal Grandmother Diabetes mellitus [email or web address] Not available 2019 08:58:42 Notes:Father: Asthma Materna l grandmother: Diabetes mellitus Medical History No medical history recorded. Gynecological History Statement/Question Response Date of Last Pap Smear Current Control Method None Date of LMP 06/19/2020 LMP Approximate Obstetrics History GPAL:G 2 P 2 0 0 2 Type Value Full Term 2 Living 2 Total 2 Past Encounters Encounter ID Performer Location Encounter Start Date Encounter Closed Date Diagnosis/Indication Diagnosis SNOMED-CT Code Diagnosis ICD10 Code Diagnosis Note [id number] Shai Macias MD [place] [address] [address] 09/13/2019 11:32:51 09/13/2019 14:30:13 Routine care 825706430 Z34.83 [id number] Shai Macias MD [place] [address],[place] [address] 09/22/2019 09:35:13 09/22/2019 10:38:35 Routine care 463199168 Z34.90 [id number] [address],[place] [address] 09/28/2019 10:15:11 09/28/2019 11:35:38 Routine care 153684707 Z34.93 RTC for routine visit in 1 week. [id number] Rayneestee [address]oc[address] [place] [address],[place] [address] 10/05/2019 09:58:01 10/05/2019 16:56:03 Routine care 272950526 Z34.93 [id number] [place] [address],[place] [address] 12/07/2019 12:23:07 12/07/2019 14:51:09 state 30573266 Z39.2 Continue to watch for signs/symp toms of post depression . Return one year from last pap smear for a well woman exam. Patient received above instructio ns, and questions have been answered. If you have any questions please call or respond to this email. Patient was made aware of the patient portal and may obtain a paper copy of today's plan if desired. [facility] care management 201902251 Z30.9 Discussed all control options in great detail. Pt would like to start ocp. She is aware of the risks and benefits. She does not have any medical condition that is contraindi cated with the use of estrogen containing control. Pt will start her pills on the first wednesday following the start of her period. She is aware it is not effective for control the first month. She is also aware of the importance of taking at the same time every day. Encouraged use of condoms as the pill does not protect against STD's. Will return in 3 months for med check. Consent was read and signed. Pt verbalized understand [place]. [id number] Jacklyn Hawkins MD [place] [address],[place] [address] 07/03/2020 11:48:10 07/03/2020 12:47:13 Candidal vulvovaginitis 90452106 B37.3 Initial pr escription of oral contraception 092589124 Z30.011 Venereal d isease screening 560922467 Z11.3 Health Concerns Section Related Observation LastModified by Organization Detai ls LastModified Time None Recorded Concern Status LastModified by Organization Details LastModified Time None Recorded Advance Directives Directive None Recorded Payers Encounter Date Sequence Insurance Name Policy Number Policy Lau Covered Member ID Lau Member ID Guarantor Name 09/22/2019 1 [employer] [id number] Vin Torres [id number] Shant Melissa 09/28/2019 1 [employer] [id number] Vin Torres [id number] Shant Torres 10/05/2019 1 [employer] [id number] Vin Torres [id number] Shant Torres 12/07/2019 1 [employer] [id number] Vin Torres [id number] Shant Melissa 07/03/2020 1 [employer] [facility] ON OR AFTER 05/07/2020 (MEDICAID REPLACEMENT - HMO) Shant Torres [id number] Shant Torres Notes Date Note Type Note Provider Name and Address Organization Details Recorded Time 09/28/2019 text/html Generic HPI TemplateReported bypatient.Notes:Noemi cagle Rayne maxwell [facility] 10/02/2019 09:49:44 12/07/2019 text/html VisitReported bypatient.Notes:PP 5-5. Bleeding stopped. Period resumed. Bottle feeding. Doing well. Rayne maxwell [facility] 12/07/2019 13:19:58 07/03/2020 text/html Pt is a 19yo G2P 2002 here complaining of feeling like there is TP sticking in her vagina but there isn't. Feels like something is sitting at opening. Since yesterday. Denies page, some itching. Additional concerns: sexually active:yes contraception:none. started ocp in December, after 2 mos insurance wouldn't cover that one. wants to restart. Last annual exam: none Jacklyn Hawkins MD [address], [place], [address], [place] [facility] 07/03/2020 12:24:42 OBGyn Episode Ob Episode Information Episode Created Date Number of Fetuses Patient Bloodtype Patient rh Status Prepregnancy Weight lbs Domestic Partner Domestic Partner Phone Father Name Manager Drive Status 09/13/19 20 1 CLOSED Fetus Data First Name Last Name Admitted to NICU Weight (g) Sex Living Outcome Pediatric Complications Fetus ID Race Codes Race Delivery Type 3543.46 0704 Full Term 123 Vaginal Delivery Gideon Calculation Initial Gideon Date Initial Exam Date Initial Exam Provider Initial Ultrasound Date Last Menstrual Period Date Ultra Sound Weeks Gestation 0 Eighteen To Twenty Week Gideon Update Ultra Sound Date Fundal Height At Umbil Quickening Date Ultra Sound Latest Weeks Gestation Final Gideon Confirmed By Final Gideon Confirmed Date Final Gideon Date Ultra Sound Latest Days Gestation 0 0 Menstrual History Last Menstrual Date Menses Monthly On Bcp Conception Prior Menses Frequency Hcg Plus Date Menarche Onset Age Delivery Information Delivery Date Delivery Type Labor Anesthesia Weeks Gestation Incision Type Labor Labor Length Hrs Delivered By Post Complications Tubal Sterilization Discharge Date Comments 6 false Discharge Information Feeding Method Contraceptive Method Maternal HG B and HCT Levels Ob Episode Information Episode Created Date Number of Fetuses Patient Bloodtype Patient rh Status Prepregnancy Weight lbs Domestic Partner Domestic Partner Phone Father Name Manager Drive Status 09/13/19 20 1 A Positive CLOSED Fetus Data First Name Last Name Admitted to NICU Weight (g) Sex Living Outcome Pediatric Complications Fetus ID Race Codes Race Delivery Type 3118.44 5 F true Full Term [email or web address] [id number] Forcep Assisted Vaginal Delivery Problems Problem Notes LMP 8-6 Problem Name Start Date End Date Resolution Snomed Code Not e Late entry into care 09/13/2019 [id number] Gideon Calculation Initial Gideon Date Initial Exam Date Initial Exam Provider Initial Ultrasound Date Last Menstrual Period Date Ultra Sound Weeks Gestation 10/17/2019 09/13/2019 01/10/2019 0 Eighteen To Twenty Week Gideon Update Ultra Sound Date Fundal Height At Umbil Quickening Date Ultra Sound Latest Weeks Gestation Final Gideon Confirmed By Final Gideon Confirmed Date Final Gideon Date Ultra Sound Latest Days Gestation 0 [email or web address] 09/22/2019 10/17/19 20 0 Pre-krissy Flowsheet Flowsheet Date 09/13/2019 Garza Score Blood Edema Fundus Height Fundus Units Glucose Ketones Leukocytes Nitrite Labor Signs Protein Cervic Dilation Cervic Effacement Cervic Station none trace Type Weight in lbs Pre/Post Dialysis Refused Weight 205.758342698690 BP Diastolic BP Location Tested BP Systolic BP Type 82 118 Fetus Heart Rate Present Fetus Movement Comments Flowsheet Date 09/13/2019 Garza Score Blood Edema Fundus Height Fundus Units Glucose Ketones Leukocytes Nitrite Labor Signs Protein Cervic Dilation Cervic Effacement Cervic Station trace 34 none trace Type Weight in lbs Pre/Post Dialysis Refused Weight 205.331408032600 BP Diastolic BP Location Tested BP Systolic BP Type 82 118 Fetus Heart Rate Present A 140 Fetus Movement A Yes Comments Flowsheet Date 09/22/2019 Garza Score Blood Edema Fundus Height Fundus Units Glucose Ketones Leukocytes Nitrite Labor Signs Protein Cervic Dilation Cervic Effacement Cervic Station trace Type Weight in lbs Pre/Post Dialysis Refused Weight 209.994208260981 BP Diastolic BP Location Tested BP Systolic BP Type 72 110 Fetus Heart Rate Present Fetus Movement Comments Flowsheet Date 09/28/2019 Garza Score Blood Edema Fundus Height Fundus Units Glucose Ketones Leukocytes Nitrite Labor Signs Protein Cervic Dilation Cervic Effacement Cervic Station 37 trace Type Weight in lbs Pre/Post Dialysis Refused Weight 209.154937457138 BP Diastolic BP Location Tested BP Systolic BP Type 79 120 sitting Fetus Heart Rate Present A 130 Fetus Movement A Yes Comments Pt late to care. Having a gi rl Ariyah . Pt desires 39 week induction. Will discuss further next week. Labor precautions discussed. Flowsheet Date 10/05/2019 Garza Score Blood Edema Fundus Height Fundus Units Glucose Ketones Leukocytes Nitrite Labor Signs Protein Cervic Dilation Cervic Effacement Cervic Station 38 trace Type Weight in lbs Pre/Post Dialysis Refused Weight 210.505030417044 BP Diastolic BP Location Tested BP Systolic BP Type 71 111 sitting Fetus Heart Rate Present A 138 Fetus Movement Comments Pt would like induction. How ever, she is only 1cm and there is a dating discrepancy. I would prefer to repeat u/s next week and consider induction after that. Pt agrees. Flowsheet Date 12/07/2019 Garza Score Blood Edema Fundus Height Fundus Units Glucose Ketones Leukocytes Nitrite Labor Signs Protein Cervic Dilation Cervic Effacement Cervic Station Type Weight in lbs Pre/Post Dialysis Refused Weight 200.077255019752 BP Diastolic BP Location Tested BP Systolic BP Type 82 L arm 127 sitting Fetus Heart Rate Present Fetus Movement Comments Menstrual History Last Menstrual Date Menses Monthly On Bcp Conception Prior Menses Frequency Hcg Plus Date Menarche Onset Age 0801/10/2019 Genetic Screening And Infection History Question Response Note Mental Retardation/Autism false Patient's Age Will Be 35 Years Or Older At Estim ated Date of Delivery false Thalassemia ([place], [place]ican, Mediterranean, Or Background): MCV < 80 false Neural Tube Defect (Meningomyelocele, Spina Bifi da, Or Anencephaly) false Congenital Heart Defect false Down Syndrome false Natalio-Sachs (eg, Judaism, Cajun, Hebrew-Tuvaluan) f alse Ryan Disease false Sickle Cell Disease Or Trait () false Hemophilia Or Other Blood Disorders false Muscular Dystrophy false Cystic Fibrosis false [place] Ch[place] false Intellectual Disability/Autism false If Yes, Was Person Tested For Fragile X? false Other Inherited Genetic Or Chromosomal Disorder false Maternal Metabolic Disorder (eg, Type 1 Diabetes , PKU) false Patient Or Baby's Father Had A Child With Defects Not Listed Above false Recurrent Loss, Or A Stillbirth false Medications (including Suppl ements, Vitamins, Herbs, OTC Drugs), Illicit/Recreational Drugs, Alcohol false If Yes, Agent(s) And Strength/Dosage false Any Other Genetic History false Live With Someone With TB Or Exposed To TB false Patient Or Partner Has History Of Genital Herpes false Rash Or Viral Illness Since Last Menstrual Perio d false History Of STD, Gonorrhea, Chlamydia, HPV, Syphi lis false Other Infection History false History of HIV false History of Hepatitis false Prior GBS-infected child false Hemoglobinopathy Or Carrier false Other Structural Defect false Recent Travel History Outside of Country false Delivery Information Delivery Date Delivery Type Labor Anesthesia Weeks Gestation Incision Type Labor Labor Length Hrs Delivered By Post Complications Tubal Sterilization Discharge Date Comments 0 Augmen marie Regional-Ep idural false [email or web address] Late PNC Discharge Information Feeding Method Contraceptive Method Maternal HG B and HCT Levels Ob Episode Information Episode Created Date Number of Fetuses Patient Bloodtype Patient rh Status Prepregnancy Weight lbs Domestic Partner Domestic Partner Phone Father Name Manager Drive Status 11/01/19 20 1 DELETED Gideon Calculation Initial Gideon Date Initial Exam Date Initial Exam Provider Initial Ultrasound Date Last Menstrual Period Date Ultra Sound Weeks Gestation 0 Eighteen To Twenty Week Gideon Update Ultra Sound Date Fundal Height At Umbil Quickening Date Ultra Sound Latest Weeks Gestation Final Gideon Confirmed By Final Gideon Confirmed Date Final Gideon Date Ultra Sound Latest Days Gestation 0 0 Menstrual History Last Menstrual Date Menses Monthly On Bcp Conception Prior Menses Frequency Hcg Plus Date Menarche Onset Age Delivery Information Delivery Date Delivery Type Labor Anesthesia Weeks Gestation Incision Type Labor Labor Length Hrs Delivered By Post Complications Tubal Sterilization Discharge Date Comments 0 late for care Discharge Information Feeding Method Contraceptive Method Maternal HG B and HCT Levels
--- OUTSIDE RECORDS SUMMARY | 2024-09-17 15:29 | XMS_ITS | Data Portability ---
Author Organization Noa SEGUNDO Address [address] [place] [address] Assessment No assessment recorded. Plan of Treatment Reminders Order Date Submit Date Provider Last Modified By Organization Details Last Modified Time Details Appointments None recorded. Lab CMP, serum or plasma 2023 024 [facility], [address], [address], [place], [address], 4 06:16:34 TSH + free T4, serum 2023 024 [facility], [address], [address], [place], [address], 4 06:16:12 HbA1c (hemoglobi n A1c), blood 2023 024 [facility], [address], [address], [place], [address], 4 06:16:13 CBC 2023 024 [facility], [address], [address], [place], [address], 4 06:16:34 vitamin B12 + folate, serum or blood 2023 024 [facility], [address], [address], [place], [address], 4 06:16:13 Referral otolaryngo logist referral 2023 024 [email or web address] Borges MD, [address], [place], [address], 4 16:48:50 Procedures None recorded. Surgeries None recorded. Imaging None recorded. Medication Orders selenium sulfide 2.25 % shampoo 2023 024 [facility]acy #[id number], [address] [facility], [place], [address], 4 11:44:14 sertraline 50 mg tablet 2023 024 [facility]Pharmacy #[id number], [address] [facility], [place], [address], 4 11:44:15 griseofulv in ultramicro size 250 mg tablet 2021 022 [id number], [address] [place], [address], 4 11:08:25 ofloxacin 0.3 % ear drops 2021 022 [facility] #[id number], [address] [place], [address], 4 11:08:08 hydroxyzin e HCl 10 mg tablet 2021 022 [facility], [address] [place], [address], 4 11:08:22 griseofulv in ultramicro size 250 mg tablet 2020 021 [email or web address] [facility]arm[facility] #[id number], [address], [place], [address], 4 11:08:25 hydroxyzin e HCl 10 mg tablet 2020 021 [email or web address] [id number], [address], [place], [address], 4 11:08:22 selenium sulfide 2.25 % shampoo 2020 021 [email or web address] [facility]armacy #[id number], [address], [place], [address], 4 11:40:25 griseofulv in ultramicro size 250 mg tablet 2020 021 [email or web address] [facility]/Pharmacy #[id number], [address] , [place], [address], 4 11:08:25 Patient TargetsNo targets recorded. Patient Instructions Encounter Date Encounter Id Patient Instructions Last Modified By Organization Details Last Modified Time 08/21/2020 [id number] discussed ways t o quit tobacco ; and advised not to vape and why .. 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 Impacted cerumen of bilateral ears Referring Physician: Kapil Belle, Internal Medicine, Encounter Date: 06/15/2023 Results Created Date Observation Date Name Description Value Unit Range Abnormal Flag Note LastModifiedBy Organization Detail LastModifiedTime 06/15/19 24 06/16/2023 TSH+F REE T4 TSH 5.840 uIU/m L 0.450- 4.500 above high normal Not Available [facility] ([facility]) [address] [place], [address], 06/16/2023 06:16:12 06/15/1906/16/2023 TSH+F REE T4 T4,free(dire ct) 1.04 NG/dL 0.82-1 .77 Not Available [facility] ([facility]) [address] [place], [address], 06/16/2023 06:16:12 06/15/1906/16/2023 VITAM IN B12 AND FOLAT E vitamin B12 707 pg/mL 232-12 45 Not Available [facility] ([facility]) [address] [place], [address], 06/16/2023 06:16:13 06/15/1906/16/2023 VITAM IN B12 AND FOLAT E folate (folic acid), serum 5.6 NG/mL >3.0 A serum folat e ladonna ntrat ion of less than 3.1 ng/mL is consi dered to repre sent clini sai defic iency . Not Available [facility] ([facility]) [address] [place], [address], 06/16/2023 06:16:13 06/15/1906/16/2023 HEMOG LOBIN A1C hemoglobin A1C 5.3 % 4.8-5. 6 Predi abete s: 5.7 - 6.4 Diabe lillian: >6.4 Glyce fernando contr ol for adult s with diabe lillian: <7.0 Not Available [facility] ([facility]) [address] [place], [address], 06/16/2023 06:16:13 06/15/19 24 06/15/2023 COMP. METAB OLIC PANEL (14) glucose 91 mg/dL 70-99 Not Available [facility] Department [address] [place], [address], 06/16/2023 06:16:34 06/15/19 24 06/15/2023 COMP. METAB OLIC PANEL (14) BUN 18 mg/dL 6-20 Not Available [facility] Department [address] [place] [address], [address], 06/16/2023 06:16:34 06/15/19 24 06/15/2023 COMP. METAB OLIC PANEL (14) creatinine 0.81 mg/dL 0.76-1 .27 Not Available [facility] Department [address] [place] [address], [address], 06/16/2023 06:16:34 06/15/19 24 06/15/2023 COMP. METAB OLIC PANEL (14) eGFR 105 >=60 Units for eGFR value s are mL/mi n/1.7 3 The eGFR Calcu latio n has not been valid ated for patie nts under the age of 18. If test resul ts are displ ayed for a patie nt under the age of 18, disre jose that value . Not Available [facility] Department [address] [place] [address], [address], 06/16/2023 06:16:34 06/15/19 24 06/15/2023 COMP. METAB OLIC PANEL (14) BUN/creatini ne ratio 22 9-23 Not Available [facility] Department [address] [place] [address], [address], 06/16/2023 06:16:34 06/15/19 24 06/15/2023 COMP. METAB OLIC PANEL (14) sodium 146 mmol/ L 134-14 4 above high normal Not Available [facility] Department [address] [place] [address], [address], 06/16/2023 06:16:34 06/15/19 24 06/15/2023 COMP. METAB OLIC PANEL (14) potassium 4.7 mmol/ L 3.5-5. 2 Not Available [facility] Department [address] [place], [address], 06/16/2023 06:16:34 06/15/19 24 06/15/2023 COMP. METAB OLIC PANEL (14) chloride 109 mmol/ L 96-106 above high normal Not Available [facility] Department [address] [place], [address], 06/16/2023 06:16:34 06/15/19 24 06/15/2023 COMP. METAB OLIC PANEL (14) carbon dioxide, total 24 mmol/ L 20-29 Not Available [facility] Department [address] [place], [address], 06/16/2023 06:16:34 06/15/19 24 06/15/2023 COMP. METAB OLIC PANEL (14) calcium 9.1 mg/dL 8.7-10 .2 Not Available [facility] Department [address] [place], [address], 06/16/2023 06:16:34 06/15/19 24 06/15/2023 COMP. METAB OLIC PANEL (14) protein, total 6.4 g/dL 6.0-8. 5 Not Available [facility] Department [address] [place], [address], 06/16/2023 06:16:34 06/15/19 24 06/15/2023 COMP. METAB OLIC PANEL (14) albumin 4.0 g/dL 4.0-5. 0 Not Available [facility] Department [address] [place], [address], 06/16/2023 06:16:34 06/15/19 24 06/15/2023 COMP. METAB OLIC PANEL (14) globulin, total 2.4 g/dL 1.5-4. 5 Not Available [facility] Department [address] [place], [address], 06/16/2023 06:16:34 06/15/19 24 06/15/2023 COMP. METAB OLIC PANEL (14) A/G ratio 1.7 1.2-2. 2 Not Available [facility] Department [address] [place] [address], [address], 06/16/2023 06:16:34 06/15/19 24 06/15/2023 COMP. METAB OLIC PANEL (14) bilirubin, total 0.2 mg/dL 0.0-1. 2 Not Available [facility] Department [address] [place] [address], [address], 06/16/2023 06:16:34 06/15/19 24 06/15/2023 COMP. METAB OLIC PANEL (14) alkaline phosphatase 61 IU/L 44-121 Not Available [facility] Department [address] [place] [address], [address], 06/16/2023 06:16:34 06/15/19 24 06/15/2023 COMP. METAB OLIC PANEL (14) AST (SGOT) 33 IU/L 0-40 Not Available [facility] Department [address] [place] [address], [address], 06/16/2023 06:16:34 06/15/19 24 06/15/2023 COMP. METAB OLIC PANEL (14) ALT (SGPT) 42 IU/L 0-32 above high normal Not Available [facility] Department [address] [place] [address], [address], 06/16/2023 06:16:34 06/15/19 24 06/15/2023 CBC, PLATE LET, NO DIFFE RENTI AL WBC 5.0 x10e3 /uL 3.4-10 .8 Not Available [facility] Department [address] [place] [address], [address], 06/16/2023 06:16:34 06/15/19 24 06/15/2023 CBC, PLATE LET, NO DIFFE RENTI AL RBC 4.44 x10e6 /uL 3.77-5 .28 Not Available [facility] Department [address] [place], [address], 06/16/2023 06:16:34 06/15/1906/15/2023 CBC, PLATE LET, NO DIFFE RENTI AL hemoglobin 12.7 g/dL 11.1-1 5.9 Not Available [facility] Department [address] [place], [address], 06/16/2023 06:16:34 06/15/1906/15/2023 CBC, PLATE LET, NO DIFFE RENTI AL hematocrit 39.7 % 34.0-4 6.6 Not Available [facility] Department [address] [place], [address], 06/16/2023 06:16:34 06/15/1906/15/2023 CBC, PLATE LET, NO DIFFE RENTI AL MCV 89 fL 79-97 Not Available [facility] Department [address] [place], [address], 06/16/2023 06:16:34 06/15/1906/15/2023 CBC, PLATE LET, NO DIFFE RENTI AL MCH 28.6 pg 26.6-3 3.0 Not Available [facility] Department [address] [place], [address], 06/16/2023 06:16:34 06/15/1906/15/2023 CBC, PLATE LET, NO DIFFE RENTI AL MCHC 32.0 g/dL 31.5-3 5.7 Not Available [facility] Department [address] [place], [address], 06/16/2023 06:16:34 06/15/1906/15/2023 CBC, PLATE LET, NO DIFFE RENTI AL RDW 13.1 % 11.5-1 4.5 Not Available [facility] Department [address] [place], [address], 06/16/2023 06:16:34 06/15/19 24 06/15/2023 CBC, PLATE LET, NO DIFFE RENTI AL platelets 239 x10e3 /uL 150-45 0 Mean Plate let Volum e 11.3 fL 8.9-1 2.7 N Not Available [facility] Department [address] [place], [address], 06/16/2023 06:16:34 06/15/19 24 06/15/2023 CBC, PLATE LET, NO DIFFE RENTI AL NRBC 0 % 0-0 Not Available [facility] Department [address] [place], [address], 06/16/2023 06:16:34 Result Notes None recorded. Problems Name Problem SNOMED Code Status Onset Date Resolution Date Notes Provider Name and Address Organization Details Recorded Time Tinea capitis 9514399 Active 2020 Landen Rose PA-C Attn: Ayaka irwin,[address] [place], [address], [facility] 1 10:11:50 Tobacco user 167977889 Active 2020 Landen Rose PA-C Attn: Ayaka irwin,[address] [place], [address], [facility] 1 16:21:38 Anxiety 33525398 Active 2020 Landen Rose PA-C Attn: Ayaka irwin,[address] [place], [address], [place] [facility] 1 12:08:57 Morbid obesity 197058653 Active 2023 Kapil Belle MD Attn: Ayaka irwin,[address] [place], [address], [facility] - [facility] 4 11:31:38 Impacted cerumen of bilateral ears 7325277339881 108 Active 2023 Kapil Belle MD Attn: Ayaka irwin,[address] [place], [address], [place] [facility] 4 11:32:02 Family history of Thyroid disorder 816165192 Active 2023 Kapil Belle MD Attn: Ayaka irwin,[address] [facility], [place], [address], [place] [facility] 4 11:32:23 History of anxiety state 747066228 Active 2023 Kapil Belle MD Attn: Ayaka irwin,[address] [facility], [place], [address], [place] [facility] 4 11:33:25 Fatigue 43127428 Active 2023 Kapil Belle MD Attn: Ayaka irwin,[address] [facility], [place], [address], [place] [facility] 4 11:35:10 Headache 00745380 Active 2023 Kapil Belle MD Attn: Ayaka irwin,[address] [facility], [place], [address], [place] [facility] 4 11:37:54 Disorder of scalp 381538027 Active 2023 Kapil Belle MD Attn: Ayaka irwin,[address] [facility], [place], [address], [place] [facility] 4 11:38:17 Thyroid stimulating hormone level above reference range 423863115 Active 2023 Kapil Belle MD Attn: Ayaka irwin,[address] [facility], [place], [address], [place] [facility] 4 06:37:45 Problem Notes None recorded. Medical Equipment None Reported. Allergies Allergen ID Allergen Name Allergen Category Reaction Reaction Severity Criticality Documentation Date Start Date Code Code System Note Provider Name and Address Organization Details Recorded Time 357511 amoxicill in medicatio n hives severe Not available 08/21/2020 723 RxNorm Not Available Not Available Not Available Medications Name Sig Start Date Stop Date Status Note LastModified by Organization Details LastModified Time cyclobenzap rine 10 mg tablet TAKE ONE TABLET BY MOUTH 3 TIMES DAILY 08/21 completed Not Available Not Available Not Available clindamycin HCl 300 mg capsule TAKE 1 CAPSULE BY MOUTH 3 TIMES DAILY FOR 7 DAYS active Not Available Not Available No t Available cetirizine 10 mg tablet active Not Available Not Available Not Available azithromyci n 250 mg tablet PLEASE SEE ATTACHED FOR DETAILED DIRECTION S 09/05 completed Not Available Not Available Not Available ibuprofen 800 mg tablet TAKE 1 TABLET BY MOUTH EVERY 6 HOURS NEEDED FOR PAIN/FEVE R active Not Available Not Available No t Available Lidocaine Viscous 2 % mucosal solution PLEASE SEE ATTACHED FOR DETAILED DIRECTION S 08/21 completed Not Available Not Available Not Available fluconazole 150 mg tablet TAKE 1 TABLET BY MOUTH THEN WAIT 72 HOURS IF SYMPTOMS REMAIN TAKE SECOND TABLETS. 02/27 completed Not Available Not Available Not Available benzonatate 200 mg capsule 2024 active Not Available Not Available Not Avai lable metronidazo le 0.75 % (37.5 mg/5 gram) vaginal gel INSERT 1 APPLICATO RFUL INTO THE VAGINA NIGHTLY FOR 5 DAYS. 06/15 completed Not Available Not Available Not Available clindamycin HCl 150 mg capsule TAKE 2 CAPSULES BY MOUTH 3 TIMES A DAY 06/15 completed Not Available Not Available Not Available metronidazo le 500 mg tablet TAKE 1 TABLET BY MOUTH TWICE A DAY NO ALCOHOL UNTIL 24 HOURS AFTER LAST PILL active Not Available Not Available No t Available ofloxacin 0.3 % ear drops INSTILL 10 DROPS INTO AFFECTED EAR(S) BY OTIC ROUTE ONCE DAILY 06/15 completed Not Available Not Available Not Available meclizine 25 mg tablet TAKE 1 TABLET BY MOUTH TWICE A DAY active Not Available Not Available No t Available benzonatate 100 mg capsule TAKE 1 CAPSULE BY MOUTH EVERY 8 HOURS NEEDED 06/15 completed Not Available Not Available Not Available cephalexin 500 mg capsule TAKE 1 CAPSULE BY MOUTH TWICE A DAY active Not Available Not Available No t Available nystatin 100,000 unit/gram topical cream APPLY TO AFFECTED AREA TWICE A DAY 06/15 completed Not Available Not Available Not Available promethazin e 25 mg tablet TAKE 1 TABLET BY MOUTH EVERY 6 HOURS NEEDED FOR NAUSEA OR VOMITING. 06/15 completed Not Available Not Available Not Available methylpredn isolone 4 mg tablets in a dose pack TAKE PER PACKAGE INSERT active Not Available Not Available No t Available albuterol sulfate HFA 90 mcg/actuati on aerosol inhaler 2-4 PUFFS NEEDED EVERY 4-6 HOURS FOR COUGH AND SHORTNESS OF BREATH 09/05 completed Not Available Not Available Not Available hydroxyzine HCl 10 mg tablet TAKE 1 OR 2 TABLETS BY MOUTH UP TO 3 TIMES A DAY NEEDED 06/15 completed Not Available Not Available Not Available cefdinir 300 mg capsule TAKE 1 CAPSULE BY MOUTH TWICE A DAY FOR 10 DAYS active Not Available Not Available No t Available sertraline 50 mg tablet TAKE 1 TABLET BY MOUTH EVERY DAY active Not Available Not Available No t Available griseofulvi n ultramicros ize 250 mg tablet TAKE 1 TABLET BY MOUTH TWICE A DAY FOR 14 DAYS 06/15 completed Not Available Not Available Not Available 06/26 (28) 1 mg-20 mcg (21)/75 mg (7) tablet TAKE 1 TABLET BY MOUTH EVERY DAY 02/27 completed Not Available Not Available Not Available nitrofurant oin monohydrate /macrocryst als 100 mg capsule TAKE 1 CAPSULE BY MOUTH TWICE A DAY 06/15 completed Not Available Not Available Not Available selenium sulfide 2.25 % shampoo Apply by topical route for 30 days. active Not Available Not Available No t Available chlorhexidi ne gluconate 0.12 % mouthwash SWISH AND SPIT 10 ML TWICE A DAY. active Not Available Not Available No t Available Vitals Date Recorded Body height Body mass index (BMI) Body mass index (BMI) Percentile per age and sex Body weight Oxygen saturation Oxygen saturation in Arterial blood by Pulse oximetry Heart rate Body temperature Systolic blood pressure Diastolic blood pressure Provider Name and Address Organization Details Last Updated DateTime 165.1 cm 37.3 kg/m2 98 % 003299. 69 g 96 % 96 % 87 /min 98.6 [degF] 118 mm[Hg] 68 mm[Hg] Lottie Edmond MA [place] - [facility] 09:58:00 Date Recorded Body height Provider Name an d Address Organization Details Last Updated DateTime 02/27/2021 165.1 cm Lottie Singleton [place] - [facility] 02/27/2021 11:49:30 Date Recorded Body height Oxygen saturation Oxygen saturation in Arterial blood by Pulse oximetry Heart rate Body mass index (BMI) Body weight Systolic blood pressure Diastolic blood pressure Provider Name and Address Organization Details Last Updated DateTime 2 165.1 cm 97 % 97 % 73 /min 40.8 kg/m2 669251. 13 g 110 mm[Hg] 70 mm[Hg] Shae Quezada MA [facility] 2 10:46:46 Date Recorded Heart rate Oxygen saturation Oxygen saturation in Arterial blood by Pulse oximetry Body height Body mass index (BMI) Body weight Systolic blood pressure Diastolic blood pressure Provider Name and Address Organization Details Last Updated DateTime 4 78 /min 98 % 98 % 165.1 cm 47.3 kg/m2 603777. 23 g 126 mm[Hg] 84 mm[Hg] Julius Gupta MA [facility] 4 11:11:39 Date Recorded Body height Body mass index (BMI) Body weight Heart rate Oxygen saturation Oxygen saturation in Arterial blood by Pulse oximetry Systolic blood pressure Diastolic blood pressure Provider Name and Address Organization Details Last Updated DateTime 5 165.1 cm 46.3 kg/m2 507217. 68 g 75 /min 98 % 98 % 118 mm[Hg] 77 mm[Hg] Davey Rose MA [facility] 5 17:09:11 Social History Question Answer Notes LastModified by Organizat ion Details LastModified Time Tobacco Smoking Status Former Smoker Shae Quezada MA null, [facility] 02/18/2022 10:45:08 Do You Have An Advance Directive? No Information not available 08/21/2020 What Is Your Level Of Alcohol Consumption? None Information not available 08/21/2020 Are You Blind Or Do You Have Difficulty Seeing? Yes Wears Glasses Information not available 08/21/2020 What Is Your Level Of Caffeine Consumption? Moderate Information not available 08/21/2020 Are You Currently Employed? Yes Information not available 08/21/2020 Are You Deaf Or Do You Have Serious Difficulty Hearing? Yes Difficulty Hearing In Left Ear Information not available 08/21/2020 What Type Of Diet Are You Following? REGULAR Information not available 08/21/2020 Do You Or Have You Ever Used E-cigarettes Or Vape? Former User Of Electronic Cigarettes Pt. Doesn't Use Anymore 06/15/23 Information not available 06/15/2023 What Is Your Occupation? [employer] Information not available 08/21/2020 Are There Any Guns Present In Your Home? No Information not available 08/21/2020 What Was The Date Of Your Most Recent Tobacco Screening? 06/15/2023 Information not available 06/15/2023 How Many Children Do You Have? 2 Information not available 08/21/2020 Do You Use Protection During Sex? Always Information not available 08/21/2020 What Is Your Relationship Status? Single Information not available 08/21/2020 Do You Use Your Seat Belt Or Car Seat Routinely? Yes Information not available 08/21/2020 Are You Sexually Active? Yes Information not available 08/21/2020 Do You Have Smoke And Carbon Monoxide Detectors In Your Home? Yes Information not available 08/21/2020 At What Age Did You Start Smoking Tobacco? 19 Information not available 08/21/2020 Are You Passively Exposed To Smoke? No Information not available 08/21/2020 Do You Or Have You Ever Used Smokeless Tobacco? Never Used Smokeless Tobacco Information not available 08/21/2020 Do You Feel Stressed (tense, Restless, Nervous, Or Anxious, Or Unable To Sleep At Night)? [id number] Information not available 08/21/2020 Do You Use Any Illicit Or Recreational Drugs? No Information not available 08/21/2020 Do You Use Sunscreen Routinely? Yes Information not available 08/21/2020 Has Tobacco Cessation Counseling Been Provided? Yes Information not available 08/21/2020 On What Date Was Tobacco Cessation Counseling Provided? 06/15/2023 Information not available 06/15/2023 How Many Years Have You Smoked Tobacco? 1 Pt Has Only Done Less Than A Year Information not available 08/21/2020 Do You Or Have You Ever Used Any Other Forms Of Tobacco Or Nicotine? Yes Information not available 08/21/2020 How Many Years Have You Used E-cigarettes Or Vape? 1 Information not available 08/21/2020 Sex: Female Functional Status Question Answer Note LastModified by Organizat ion Details LastModified Time Are you able to care for yourself? Yes Information not available 08/21/2020 What is your exercise level? Occasional Information not available 08/21/2020 Mental Status None recorded. Family History Relationship Description Onset Age of this Age Resolved Age Notes LastModified by Organization Details LastModified Time Father Asthma [email or web address] Not availabl e 08/21/2020 09:45:11 Father Disorder of thyroid gland [email or web address] Not available 2023 11:27:26 Mother Depressive disorder [email or web address] Not available 08/05 09:45:22 Mother Disorder of thyroid gland [email or web address] Not available 2023 11:27:26 Sister Anxiety [email or web address] Not availab le 08/21/2020 09:45:37 Medical History Condition Response Coronary Artery Disease N High Blood Pressure N Atrial Fibrillation N Thyroid Problems N Kidney or Bladder Problems N GI Problems N Depression N COPD N Blood Clots N Eating Disorder N Anemia N Heart Attack (ME) N Anxiety Disorder N Diabetes N Muscle, Joint, or Bone Problems N Seizures/Epilepsy N Acid Reflux (GERD) N Cancer N Stroke N Asthma N Allergies Y ADHD N Substance Abuse N High Cholesterol N Hepatitis N Liver Disease N Schizophrenia N Headaches N Heart Failure N Osteoporosis N Gynecological History Statement/Question Response Date of LMP 06/09/2023 Obstetrics History GPAL:G 0 P 0 0 0 0 Immunizations Vaccine Type Date Status Note Provider Nam e and Address Organization Details Recorded Time Hib, unspecified formulation 1 completed DESTINY [place], [place] - [facility] 09/05/2024 17:05:07 Hib, unspecified formulation 2 completed [place] [facility] 09/05/2024 17:05:07 Hib-Hep B 1 completed Davey [place] [facility] 09/05/2024 17:05:07 IPV 1 completed Davey [place] [facility] 09/05/2024 17:05:07 IPV 1 completed Jose Aian [place], [place] [facility] 09/05/2024 17:05:07 pneumococcal conjugate PCV 7 1 completed [place] [facility] 09/05/2024 17:05:07 Tdap 6 completed Dave[place] [facility] 09/05/2024 17:05:07 Tdap 2 completed Davey Rose [place] [facility] 09/05/2024 17:05:07 Influenza, split virus, trivalent, PF 5 completed Davey Rose [place] [facility] 09/05/2024 17:05:07 DTaP 1 completed Davey Rose [place] [facility] 09/05/2024 17:05:07 DTaP 1 maxime Rose [place] [facility] 09/05/2024 17:05:07 Influenza, split virus, quadrivalent, PF 2 maxime Jose Aesauedi Rose[place]STINY, [place] [facility] 09/05/2024 17:05:07 Past Encounters Encounter ID Performer Location Encounter Start Date Encounter Closed Date Diagnosis/Indication Diagnosis SNOMED-CT Code Diagnosis ICD10 Code Diagnosis Note [id number] [facility] ([facility]) [address] [place] [id number] 08/21/2020 09:27:48 08/21/2020 10:20:14 Tinea capitis 6689921 B35.0 Tobacco user 654063090 Z 72.0 [id number] [facility] ([facility]) [address] [place] [id number] 02/27/2021 11:25:23 02/27/2021 13:57:11 Tinea capitis 1273444 B35.0 Tobacco user 225710660 Z 72.0 Anxiety 49580361 F41.9 [id number] [facility] ([facility]ult [facility]) [address] [place] [id number] 02/18/2022 10:34:24 02/19/2022 08:43:22 Anxiety 36840855 F41.9 Tinea capitis 7759912 B3 5.0 Obesity 826216969 E66.9 Acute otitis externa 302 [address] H60.446 [id number] MD Julito Contreras (Adult Med) [address] [place] [phone] 06/15/2023 10:54:30 06/18/2023 16:48:50 Morbid obesity [id number] E66.01 Family his tory of Thyroid disorder [id number] Z83.49 Anxiety 69608610 F41.9 Fatigue 95122499 R53.83 History of anxiety state [id number] F41.9 Impacted c erumen of bilateral ears [id number] 139166 H61.23 Disorder of scalp 028373 006 L98.9 [id number] MD Julito Contreras (Adult Med) [address] [place] [address] [phone] 09/05/2024 16:50:35 09/07/2024 15:11:20 Morbid obesity [id number] E66.01 Will refer to endocrinol ogist in her insurance plan Health Concerns Section Related Observation LastModified by Organization Detai ls LastModified Time None Recorded Concern Status LastModified by Organization Details LastModified Time None Recorded Advance Directives Directive N: Payers Encounter Date Sequence Insurance Name Policy Number Policy Lau Covered Member ID Lau Member ID Guarantor Name 08/21/2020 1 [employer] (MEDICAID HMO) Shant Torres [id number] Shant Torres 02/27/2021 1 [employer] [place] 2020 (MEDICAID REPLACEMENT - HMO) Shant Torres [id number] Shant Torres 02/18/2022 1 [employer] [place]AC[place] - HMO) Shant Torres [id number] Shant Carrollurray 06/15/2023 1 [employer] [place] - HMO) Shant Torres [id number] Shant Torres 09/05/2024 1 [employer] [place] - [place]MO) Shant Carrollurray [id number] Shant Torres Notes Date Note Type Note Provider Name and Address Organization Details Recorded Time 08/21/2020 text/html Arturo Lion wa s doctor for years ... sees [facility] .. has rash , scaly debris in scalp Landen Rose PA-C Attn: [address] [place], [address], [place] 08/27/2020 16:23:02 02/27/2021 text/html anxiety ... went to ED .. maternal grandma in 2016 .... a lot of stress lately . Landen Rose PA-C Attn: [address] [place], [address], [place] 02/27/2021 21:23:32 02/18/2022 text/html Shant Torres is here today for a follow up and chief complaint of an left ear infection and reoccurance of her tinea capitis. She is 4 months post and is not breast feeding. She states that she has had her left ear infection for a month and is unsure of the cause. She notes that she got out of the shower one day and noticed her ear leaking a green discharge with a foul order. There is no pain and there is occasional bouncing of air in her ear. She denies the use of Q-tips and uses cotton balls and tissue to wipe her ear. She reports getting ear infection often, mainly in her left ear. Her tinea capitis has reoccured since the start of her and has not improved. She was given griseofulvin for her last infection with improvement. She also has desire to lose weight and notes that she has had trouble losing weight. She has tried diets, drinking more water and exercising and does not like the way she looks and wants to feel her best self. Landen Rose PA-C Attn: Accounting[address] [facility], [place], [address], [facility] 02/19/2022 09:54:37 06/15/2023 text/html Here for several concerns. Weight loss, anxiety and scalp lesions Kapil Belle MD Attn: Accounting[address] [facility], [place], [address], [facility] 06/15/2023 11:44:28 09/05/2024 text/html Here because of difficulty losing weight. She has tried several options but has been able to lose only 10 lbs Kapil Belle MD Attn: Accounting[address] [facility], [place], [address], [facility] 09/05/2024 17:45:11 OBGyn Episode No OBEpisode recorded.
--- OUTSIDE RECORDS SUMMARY | 2024-09-17 15:29 | XMS_ITS | CONTINUITY OF CARE DOCUMENT ---
Author Name linus barriga Address Unknown Organization [facility] Address [address] [facility] [address] [place] [address] Phone [phone] Care Team Providers Care Deep Sea Diver Name Role Phone Byron Ponce MD Unavailable Byron Ponce MD Unavailable [phone] INSURANCE PROVIDERS Payer name Policy type / Coverage type Adia red republican ID AETNA [facility] Medicaid [id number]
--- OUTSIDE RECORDS SUMMARY | 2024-09-17 15:29 | XMS_ITS | Clinical Summary ---
Author Organization [facility] Address [address] [place] [address] Care Team Providers Care Kelp Cutter Name Role Phone Unavailable Primary Care Provider Unavailabl e Social History Tobacco Use Types Packs/Day Years Used Date Smoking Tobacco: Never Assessed Comments Unknown Sex and Gender Information Value Date Recorded Sex Assigned at Not on file Legal Sex Female 7:22 PM CDT Gender Identity Not on file Sexual Orientation Not on file Plan of Treatment Health Maintenance Due Date Last Done Comments Cervical Cancer Screening Pa p Smear (Age 21 to 29) Every 3 Years 2000 Cervical Cancer Screening 2000 Annual Physical 09/15/2003 HPV Vaccines (1 - 3-dose series) 09/15/2015 Meningococcal B Vaccine (1 o f 2 - Standard) 2016 Hepatitis C 2018 DTaP, Tdap and Td Vaccines ( 1 - Tdap) 09/15/2019 Hepatitis B Vaccines (1 of 3 - 19+ 3-dose series) 09/15/2019 COVID-19 Vaccine ( - 2023-2 5 season) 2024 Meningococcal Vaccine Aged Out No monika guy eligible based on patient's age to complete this topic Pneumococcal Vaccine: Pediat rics (0 to 5 Years) and At-Risk Patients (6 to 49 Years) Aged Out No longer eligible b ased on patient's age to complete this topic RSV Immunizations Under 20 Months Aged Out No longer eligible based on patient's age to complete this topic
--- OUTSIDE RECORDS SUMMARY | 2024-09-17 15:30 | XMS_ITS | Referral Summary ---
Author Organization [facility] Address [address] [place] [address] Care Team Providers Care Commercial Pest Control Representative Name Role Phone Unknown, Notinfile Primary Care Provider Unavail able Aarti Massey MD Unavailable [phone] Allergies Active Allergy Reactions Criticality Noted Date Comments Amoxicillin-Pot Clavulanate Swelling Medium 03/30/20 21 Medications ibuprofen (ADVIL,MOTRIN) 600 mg tabletIndication s:Cramps Take 1 tablet (600 mg total) by mouth every 6 (six) hours as needed for pain 30 tablet 10/23/2021 Active ibuprofen (ADVIL,MOTRIN) 600 mg tablet Take 1 tablet (600 mg total) by mouth every 6 (six) hours as needed for pain 20 tablet 04/17/2022 Active Active Problems Problem Noted Date Diagnosed Date Encounter for medical examination to establish c are 06/12/2024 Sterilization 04/17/2022 Vitamin D deficiency 08/13/2021 Resolved Problems Problem Noted Date Diagnosed Date Resolved Date care and examination 01/05/2022 10/01/2023 Assessment & Plan (01/05/2022 11:57 AM CDT): Doing well Return to full activity Normal , incidental 04/18/2021 01/05/2022 Assessment & Plan (04/18/2021 8:06 AM TRAFFIC MANAGER): -dating US completed today. -PNL ordered. We will discuss at her next visit. -early glucose ordered due to BMI -basa discussed -panorama discussed with the pt. She would like to do. False positives and negatives discussed. -pap and std testing done today. The results will go to the portal. If she doesn't see them in a week, to call the office. -NOB packet reviewed with the pt and her questions were answered. To gain between 10-15 pounds for the Diet and exercise discussed. To vitamins once morning sickness is better. Her FOB is 1/2 AA. She is not aware if he carries the sct. Call schedule reviewed. To phenergan. Ways to deal with morning sickness discussed. Follow up in 4 weeks. Immunizations Immunization Administration Dates Next Due DTaP 01/18/2001,2000 Hep B / HiB 2000 HiB 03/16/2002,01/18/2001 IPV 01/18/2001,2000 Influenza, Quadrivalent, Spl it, Preservative Free, Intramuscular 06/24/2021 Influenza, Trivalent, Preser vative Free, Intramuscular 03/18/2015 Influenza, Unspecified 06/13/2024(Deferr ed: Patient Refused),03/13/2024(Deferred: Patient Refused),03/15/2023(Deferred: Patient Refused) MMR 10/23/2021(Deferred: No longer n eeded) Pneumococcal Conjugate 7-Valent 2000 Tdap 09/01/2021,07/04/2015 Social History Tobacco Use Types Packs/Day Years Used Date Smoking Tobacco: Never Smokeless Tobacco: Never Tobacco Cessation:Counseling Given: Not Answered Humiliation, Afraid, Rape, and Kick questionnair e Answer Date Recorded Within the last year, have y ou been afraid of your partner or ex-partner? No 04/07/2021 Within the last year, have y ou been humiliated or emotionally abused in other ways by your partner or ex-partner? No Within the last year, have y ou been kicked, hit, slapped, or otherwise physically hurt by your partner or ex-partner? No 04/07/2021 Within the last year, have y ou been raped or forced to have any kind of sexual activity by your partner or ex-partner? No 04/07/2021 AUDIT-C Answer Date Recorded Q1: How often do you have a drink containing alc ohol? Monthly or less 04/17/2022 Q2: How many drinks containi ng alcohol do you have on a typical day when you are drinking? 1 or 2 04/17/2022 Frequency of Binge Drinking Not on file 04/07 PHQ-2 Answer Date Recorded PHQ-2 Total Score (If total score is 3 or more points, staff should administer the PHQ-9) 0 04/07/2021 [place] Depression Scale Answer Date Recorded [place] Depression Scale Total 1 01/05/2022 The thought of harming myself has occurred to me . Never 01/05/2022 Comments No Sex and Gender Information Value Date Recorded Sex Assigned at Not on file Legal Sex Female 2:36 AM TRAFFIC MANAGER Gender Identity Not on file Sexual Orientation Not on file Last Filed Vital Signs Vital Sign Reading Time Taken Comments Blood Pressure 100/80 01/18/2023 9:36 AM CDT Pulse 80 01/18/2023 9:36 AM CDT Temperature 36.9 C (98.5 F) 04/17/2022 11:33 AM TRAFFIC MANAGER Respiratory Rate 18 04/17/2022 11:50 AM TRAFFIC MANAGER Oxygen Saturation 99% 04/17/2022 11:50 AM TRAFFIC MANAGER Inhaled Oxygen Concentration - - Weight 125.2 kg (276 lb) 01/18/2023 9:36 AM CDT Height 165.1 cm (5' 5 ) 01/18/2023 9:36 AM CDT Body Mass Index 45.93 01/18/2023 9:36 AM CDT Plan of Treatment Not on file Procedures Procedure Name Priority Date/Time Associated Diagnosis Comments PAP WITH REFLEX TO HIGH RISK HPV Routine 01/05/2022 12:06 PM CDT care and examination Encounter for screening for cervical cancer HEPATITIS C ANTIBODY Routine 05/13/2021 12:50 PM TRAFFIC MANAGER Encounter for supervision of other normal in first trimester 9 weeks gestation of from Last 3 Months or Most Recently Relevant to Health Maintenance Results * Pap with reflex to High Risk HPV (01/05/2022 12:06 PM CDT) CLINICAL INFORMATION: [employer]rique maya Comment:SCREENING LMP [employer]rique maya Comment:01-01-22 Previous Pap [facility] Comment:INFORMATION NOT PROV IDED Prev. Bx [facility] Comment:INFORMATION NOT PROV IDED SOURCE: [facility] Comment:Cervix, Endocervix Pap, specimen adequacy [facility] Comment: Satisfactory for evaluation. Endocervical/transformation zone component present. HPV interp [facility] Comment:Negative for intraep ithelial lesion or malignancy. COMMENTS [facility] Comment: This Pap test has been evaluated with computer assisted technology. School Lunch Manager [facility] Comment: CBN, CT(ASCP) CT Screening location: [address] [address] Comment [facility] Comment: EXPLANATORY NOTE: The Pap is a screening test for cervical cancer. It is not a diagnostic test and is subject to false negative and false positive results. It is most reliable when a satisfactory sample, regularly obtained, is submitted with relevant clinical findings and history, and when the Pap result is evaluated along with historic and current clinical information. Thin prep 01/05/2022 12:0 6 PM CDT 01/06/2022 2:49 AM CDT Aarti Massey MD LAB CYTOLOGY ORDERA BLES Final Result [address] [place] [address] * Hepatitis C antibody (05/13/2021 12:50 PM TRAFFIC MANAGER) Hep C Ab Nonreactive Nonreactive [facility] ([facility]) Comment: Interpretive Data Nonreactive: Antibodies to HCV not detected. Does NOT exclude the possibility of recent exposure to HCV. Equivocal: Equivocal for HCV antibodies. Supplemental molecular testing will be automatically performed to determine infection status in accordance with current CDC screening recommendations. Reactive: Positive for HCV antibodies. This may represent current or past HCV infection. Supplemental molecular testing will be automatically performed to determine current infection status in accordance with current CDC screening recommendations. Interpretive data was last revised on 2019. Testing performed by: [facility], [address] [place]., [address] Blood 05/13/2021 12:5 0 PM TRAFFIC MANAGER 05/14/2021 9:39 AM TRAFFIC MANAGER us Aarti Massey MD LAB MICROBI OLOGY - GENERAL ORDERABLES Edited Result - Final [facility] ([facility]) [address] [facility] [place] [address] from Last 3 Months or Most Recently Relevant to Health Maintenance Insurance [facility] [employer] [facility] Advance Directives For more information, please contact: [phone] * Full Code (Latest Code Status on File) Date Activated Date Inactivated Comments 10/21/2021 10:53 PM 10/23/2021 6:04 PM * Full Code Date Activated Date Inactivated Comments 10/21/2021 12:56 PM 10/21/2021 10:53 PM Full CPR i n case of cardiopulmonary arrest Care Teams Commercial Pest Control Representative Relationship Specialty Start Date End Date Unknown, Notinfile PCP - General 10/13/21 Aarti Massey MD Consulting Physician Obstetrics and Gynecology 04/17/22
--- OUTSIDE RECORDS SUMMARY | 2024-09-17 15:30 | XMS_ITS | Clinical Summary ---
Author Organization [facility] Address [address] [place] [address] Care Team Providers Care Machine Set Up Technician Name Role Phone Unknown, Notinfile Primary Care Provider Unavail able Aarti Massey MD Unavailable [phone] Allergies Active Allergy Reactions Criticality Noted Date [...] 01/05/2022 Assessment & Plan (04/18/2021 8:06 AM HELPDESK SPECIALIST): -dating US completed today. -PNL ordered. We [...] eeded) Pneumococcal Conjugate 7-Valent 2000 Tdap 09/01/2021,07/04/2015 Medical History Medical History Date Comments Anxiety care and examination 01/05/2022 Family History Medical History Relation Name Comments Asthma Father Hypertension Mother Colon cancer Neg Hx breast or granite worker c ancer 04/07/01 Relation Name Status Comments Father Mother Social History Tobacco Use Types Packs/Day Years [...] staff should administer the PHQ-9) 0 04/07/2021 Melbeta Depression Scale Answer Date Recorded Melbeta Depression Scale Total 1 01/05/2022 The thought of harming myself has occurred to me . Never 01/05/2022 Comments No Sex and Gender Information Value Date Recorded Sex Assigned at Not on file Legal Sex Female 2:36 AM HELPDESK SPECIALIST Gender Identity Not on file Sexual Orientation Not on file Obstetrics History Para Term AB IAB SAB Ectopic Multiple Livin g Live Births 3 3 1 0 3 3 Date Outcome GA Total Labor Labor/2nd/3rd Weight Sex Type Anes PTL Irlanda A1 A5 Name Clin 2017 Para 8h 00m 3.544 kg (7 lb 13 oz) M Vag-S pont Epidur al N Livin g Cruz prince Complications:None Delivery Location:[facility] 2019 Para 10h 00m 3.118 kg (6 lb 14 oz) F Epidur al N Livin g Israeldevinmarga Beer Complications:None Delivery Location:[facility] 2021 Term 37w 5d 2h 12m 2h 07m/0h 02m/0h 03m 3.555 kg (7 lb 13.4 oz) F Vag-S pont Epidur al,Loc al N Livin g 9 9 ARIN AY,GIR MARIANOORXIOMY N Carlita bruno, Juanito ingram MD Complications:None Delivery Location:[facility] [place] [facility] ([facility]) Last Filed Vital Signs Vital Sign Reading Time Taken Comments Blood Pressure 100/80 01/18/2023 9:36 AM CDT Pulse 80 01/18/2023 9:36 AM CDT Temperature 36.9 C (98.5 F) 04/17/2022 11:33 AM HELPDESK SPECIALIST Respiratory Rate 18 04/17/2022 11:50 AM HELPDESK SPECIALIST Oxygen Saturation 99% 04/17/2022 11:50 AM HELPDESK SPECIALIST Inhaled Oxygen Concentration - - Weight 125.2 kg (276 lb) 01/18/2023 9:36 AM CDT Height 165.1 cm (5' 5 ) 01/18/2023 9:36 AM CDT Body Mass Index 45.93 01/18/2023 9:36 AM CDT Plan of Treatment Health Maintenance Due Date Last Done Comments Varicella Vaccines (1 of 2 - 13+ 2-dose series) 2013 HPV Vaccines (1 - 3-dose series) 09/15/2015 Meningococcal B Vaccine (1 of 2 - Standard) 2016 Regular Well Visit/Exam 18-64 2018 Depression Screening 01/05/2023 01/05/2022, 04/07/20 21 Cervical Cancer Screening 01/05/2025 01/05/2022 Influenza Vaccine (Season Ended) 2025 06/24/2021, 03/18/2015 DTaP/Tdap/Td Vaccine (5 - Td or Tdap) 09/02/2031 09/01/2021, 07/04/2015, 01/18/2001, Additional history exists Hepatitis B Screening Completed 2000 Pneumococcal vaccine <65 Aged Out 2000 No longer eligible based on patient's age to complete this topic Hepatitis C Screening Completed 05/13/2021 Procedures Procedure Name Priority Date/Time Associated Diagnosis Comments PAP WITH REFLEX TO HIGH RISK HPV Routine 01/05/2022 12:06 PM CDT care and examination Encounter for screening for cervical cancer HEPATITIS C ANTIBODY Routine 05/13/2021 12:50 PM HELPDESK SPECIALIST Encounter for supervision of other normal in first trimester 9 weeks gestation of from Last 3 Months or Most Recently Relevant to Health Maintenance Results * Pap with reflex to High Risk HPV (01/05/2022 12:06 PM CDT) CLINICAL INFORMATION: [facility] Comment:SCREENING LMP [facility] Comment:01-01-22 [facility] Comment:INFORMATION NOT PROV IDED Prev. Bx [facility] Comment:INFORMATION NOT PROV IDED SOURCE: [facility] Comment:Cervix, Endocervix Pap, specimen adequacy [facility] Comment: Satisfactory for evaluation. Endocervical/transformation zone component present. HPV interp [facility] Comment:Negative for intraep ithelial lesion or malignancy. COMMENTS [facility] Comment: This Pap test has been evaluated with computer assisted technology. Director Traffic And Planning [facility] Comment: CBN, CT(ASCP) CT Screening location: [address] Comment: EXPLANATORY NOTE: The Pap is a [...] MD LAB CYTOLOGY ORDERA BLES Final Result [address] [address] * Hepatitis C antibody (05/13/2021 12:50 PM HELPDESK SPECIALIST) Hep C Ab Nonreactive Nonreactive [facility]ENC[facility] [...] last revised on 2019. Testing performed by: [facility], [address] [place] [address], [place]., [address] Blood 05/13/2021 12:5 0 PM HELPDESK SPECIALIST 05/14/2021 9:39 AM HELPDESK SPECIALIST us Aarti Massey MD LAB MICROBI OLOGY - GENERAL ORDERABLES Edited Result - Final [facility] ([facility]) 1 [facility] Department of Laboratories [place], [place] [id number] from Last 3 Months or Most Recently Relevant to Health Maintenance Insurance [facility] AETNA BETTER [facility] Advance Directives For more information, please contact: [phone] * Full Code (Latest Code Status on File) Date Activated Date Inactivated Comments 10/21/2021 10:53 PM 10/23/2021 6:04 PM * Full Code Date Activated Date Inactivated Comments 10/21/2021 12:56 PM 10/21/2021 10:53 PM Full CPR i n case of cardiopulmonary arrest Care Teams Machine Set Up Technician Relationship Specialty Start Date End Date Unknown, Notinfile PCP - General 10/13/21 Aarti Massey MD Consulting Physician Obstetrics and Gynecology 04/17/22
[2024-09-17 15:34] VITALS: BP 131/72; PULSE 70; RESP 14; TEMP 36.8; O2SAT 96
--- NOTE | 2024-09-17 16:43 | ED_ITS ---
HPI - General Adult General Chief complaint: Upper Respiratory Infection Stated complaint: Cough/Sore Throat/ Ear Problem Source: patient Mode of arrival: ambulatory Limitations: no limitations History of Present Illness HPI narrative: Patient presents for evaluation of sick symptoms. Symptom onset 2 days ago. Symptoms include cough, sore throat, and itchiness in both ears. No fever, chills, nausea, vomiting, diarrhea. 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 She does not smoke. She took mucinex for her symptoms which seemed to help. Related Data Home Medications ?Medication ?Instructions ?Recorded ?Confirmed ?Last Taken ?Type No Home Medications 09/17/24 09/17/24 Unknown History Allergies Allergy/AdvReac Type Severity Reaction Status Date / Time amoxicillin Allergy Unknown Hives Verified 09/17/24 15:33 Penicillins Allergy Unknown Hives Verified 09/17/24 15:33 Review of Systems Review of Systems: CONSTITUTIONAL: Denies fever, chills, or sweats. EYES: Denies visual changes, redness, or discharge. ENT: Reports sore throat and itchiness in both ears. Denies rhinorrhea or congestion CARDIOVASCULAR: Denies chest pain, palpitations, or edema. RESPIRATORY: Reports cough. Denies SOB GASTROINTESTINAL: Denies abdominal pain, nausea, vomiting, or diarrhea. GENITOURINARY: Denies dysuria or hematuria. SKIN: Denies rash or itching. MUSCULOSKELETAL: Denies back pain, joint pain, or myalgia. NEUROLOGIC: Denies headache, numbness, dizziness, or weakness. PSYCHIATRIC: Denies anxiety or depression. [facility] Past Medical History Medical History No active medical problems Surgical History Surgical History No pertinent past surgical history Family History Family History Father Asthma Social History Social History Smoking status: Never smoker Second hand tobacco smoke exposure: No Alcohol intake: never Substance use: never Spiritual care concerns: No Exam Narrative: GENERAL: Well-appearing, well-nourished, and in no acute distress. HEAD: Normocephalic, atraumatic. EYES: PERRLA and EOMI. ENT: Nares clear, no rhinorrhea or epistaxis. Mucous membranes moist. Oropharynx without tonsillar hypertrophy exudate or other lesions. Bilateral ea r canals are ceruminous. Unable to visualize the TM's. NECK: Supple. No adenopathy or masses. No carotid bruits or JVD CHEST: Clear to auscultation. No respiratory distress. No wheezes rales or r honchi HEART: Regular rate and rhythm. No murmur heard. Normal peripheral pulses. ABDOMEN: Soft, nontender, nondistended, normal active bowel sounds. EXTREMITIES: Normal range of motion. No edema. SKIN: Warm, dry, no rash. NEURO: No focal deficits. Alert and oriented x3. PSYCH: Normal mood and affect. Course Course Emergency Course: This is a 24 yr old female who presented for evaluation of sick symptoms. Rapid strep negative. Will send throat culture. She declined influenza and COVID swabs. I offered irrigate her ears. She declined. Exam is consistent with acute viral syndrome. Increase hydration. Continue to take Mucinex which has been effective. Over the counter medications may help with her symptoms. Follow-up with primary provider. Go to the ER for worsening symptoms. Patient in agreement with plan of care. Level of Care: Express Care Visit Vital Signs Vital signs: Vital Signs Temperature 36.8 C 09/17/24 15:34 Pulse Rate 70 09/17/24 15:34 Respiratory Rate 14 09/17/24 15:34 Blood Pressure 131/72 09/17/24 15:34 Pulse Oximetry 96 09/17/24 15:34 Oxygen Delivery Room Air 09/17/24 15:34 Temperature 36.8 C 09/17/24 15:34 Pulse Rate 70 09/17/24 15:34 Respiratory Rate 14 09/17/24 15:34 Blood Pressure 131/72 09/17/24 15:34 Pulse Oximetry 96 09/17/24 15:34 Oxygen Delivery Room Air 09/17/24 15:34 Medical Decision Making Vital Signs Vital Signs: Vital Signs Temperature 36.8 C 09/17/24 15:34 Pulse Rate 70 09/17/24 15:34 Respiratory Rate 14 09/17/24 15:34 Blood Pressure 131/72 09/17/24 15:34 Pulse Oximetry 96 09/17/24 15:34 Oxygen Delivery Room Air 09/17/24 15:34 Temperature 36.8 C 09/17/24 15:34 Pulse Rate 70 09/17/24 15:34 Respiratory Rate 14 09/17/24 15:34 Blood Pressure 131/72 09/17/24 15:34 Pulse Oximetry 96 09/17/24 15:34 Oxygen Delivery Room Air 09/17/24 15:34 Lab Data Labs: Lab Results 09/17/24 Range/Units 16:52 POC Grp A Strep Screen Negative (Negative) Discharge Plan Discharge Clinical Impression: Acute viral syndrome Patient Disposition: Home Condition: Stable Instructions: Antibiotic Form, Viral Syndrome (ED) Patient Language: Croatian Prescriptions: No Action No Home Medications Follow-up/Referrals: Yoshi,Kapil Miles MD [Primary Care Provider] - Stand Alone Forms: Work/School Release IP Time of Disposition: 16:57
[2024-09-17 16:54] LABS: EDSTREPNEGPOS1 Negative (Negative)
== END 2024-09-17 17:05 | disposition home or self-care (01) ==
PROVIDERS: Emergency Provider Nurse Practitioner; PCP Internal Medicine Gastroenterology
DX: B34.9 Viral infection, unspecified (principal)
CPT/HCPCS: 87081; 87880; 99213; G0463

== ENCOUNTER 2025-02-24 10:30 | Emergency (ER) | payer OTHER, SELFPAY ==
--- OUTSIDE RECORDS SUMMARY | 2025-01-07 19:00 | XMS_ITS | Continuity of Care Document ---
Author Organization [facility] Address [address] [place] [phone] Phone Care Team Providers Care Data Processing Operator Name Role Phone Rodo MOODY, FACC, Kajal Unavailable Unavailab le Procedures Procedure Date ELECTROCARDIOGRAM REPORT Advance Directives Directive Yes / No Effective Date File Name No Information Encounters Encounter Description Practice Location Reason(s) For Visit Diagnoses Date Provider Providers Copied on Encounter [facility], [address] [place] [address], [id number], tel:[phone] [facility] ER No Information Rodo Rdz. [address] [place] [address], [id number], . tel:[phone] Referring Provider: Kajal Koehler, [address] [place] [address], [id number]. tel:[phone] Family History Family Member Type Diagnosis Age [...]
--- NOTE | ~2025-02-24 | CT_ITS ---
EXAMINATION: CT brain wo con COMPARISON: None HISTORY: neck pain TECHNIQUE: Axial images were obtained through the brain without IV contrast. CT scan performed using dose optimization techniques including the following automated exposure control; adjustment of mA and/or kV; use of iterative reconstruction technique. Automatic exposure control was used to reduce radiation dose. Permanent radiation dose record is archived to PACS. FINDINGS: No acute infarct or parenchymal hemorrhage. No abnormal mass or mass effect. No midline shift. No extra-axial fluid collections. No hydrocephalus. . Mastoid air cells unremarkable. Sinuses and orbits unremarkable. No acute fracture. No significant facial or scalp soft tissue swelling evident. No radiopaque foreign body is seen. Impression: 1.No acute intracranial abnormality. Reviewed, dictated and finalized at location A. Impression: 1.No acute intracranial abnormality.
--- NOTE | ~2025-02-24 | CT_ITS ---
EXAMINATION: CT cervical spine wo con COMPARISON: None HISTORY: neck pain TECHNIQUE: Axial images were obtained through the spine without IV contrast. Coronal, sagittal reconstruction images were obtained from the axial views. CT scan performed using dose optimization techniques including the following automated exposure control; adjustment of mA and/or kV; use of iterative reconstruction technique. Automatic exposure control was used to reduce radiation dose. Permanent radiation dose record is archived to PACS. FINDINGS: The vertebral heights are intact. No fracture or subluxation. The disc heights are intact. The soft tissues demonstrate subcentimeter thyroid nodules. Impression: No acute abnormality. Reviewed, dictated and finalized at location A. Impression: No acute abnormality.
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
[2025-02-24 10:32] VITALS: BP 126/83; PULSE 102; RESP 18; TEMP 36.4; O2SAT 100
--- OUTSIDE RECORDS SUMMARY | 2025-02-24 10:32 | XMS_ITS | Clinical Summary ---
Author Organization [facility] Address [address] [place] [address] Care Team Providers Care Physics Professor Name Role Phone Arturo Lion MD Primary Care Provider [phone] Source Comments [facility],non-owned Affiliates and Associated Physician Practices is amultiple site organization consisting of ambulatory clinics and hospital sitesin [place] and [place]. This disclosure is being madepursuant to the Care Everywhere program and may not contain all information available regarding this patient. 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 Gender Identity Not on file Sexual Orientation Not on file Plan of Treatment Health Maintenance Due Date Last Done Comments HIV SCREENING 09/15/2015 HPV VACCINE (1 - 3-dose series) 09/15/2015 CHLAMYDIA/GONORRHEA SCREENING 2016 HEPATITIS C SCREENING 09/10/2018 DTAP/TDAP/TD VACCINES (1 - Tdap) 09/15/2019 HEPATITIS B VACCINE (1 of 3 - 19+ 3-dose series) 09/15/2019 DEPRESSION SCREENING 06/07/2024 COVID-19 VACCINE ( - 2023-2 5 season) 2025 INFLUENZA VACCINE (#1) 2025 ZOSTER VACCINE (1 of 2) 2050 HIB VACCINE Aged Out No longer eligi ble based on patient's age to complete this topic MENINGOCOCCAL (Group B) VACC INE SHARED DECISION-MAKING Aged Out No longer eligibl e based on patient's age to complete this topic MENINGOCOCCAL GROUPS A/C/Y/W VACCINE Aged Out No longer eligible b ased on patient's age to complete this topic PNEUMOCOCCAL VACCINE Aged Out No long er eligible based on patient's age to complete this topic Insurance AETNA Care Teams Physics Professor Relationship Specialty Start Date End Date Arturo Lion MD [address] [place] [address] PCP - General Family Medicine 07/14/12
--- OUTSIDE RECORDS SUMMARY | 2025-02-24 10:32 | XMS_ITS | Clinical Summary ---
Author Organization [facility] Address [address] [place] [address] Phone Care Team Providers Care Physical Therapy Instructor Name Role Phone Provider, Unknown Primary Care [...] (HPV) Immunization (1 - 3-dose series) 09/15/2015 Pap Smear 2021 Influenza Immunization (#1) 02/05/202506/07, 03/18/2015 SARS-COV-2 Immunization ( season) 2025 Respiratory Syncytial Virus (RSV) Immunization (Adult) (1 [...] age to complete this topic Care Teams Physical Therapy Instructor Relationship Specialty Start Date End Date Provider, Unknown UNKNOWN PCP - General 01/26/24
--- OUTSIDE RECORDS SUMMARY | 2025-02-24 10:32 | XMS_ITS | Clinical Summary ---
Author Organization [facility] Address [address] [place] [address] Care Team Providers Care Strip Polisher Name Role Phone Unknown, Notinfile Primary Care Provider Unavail able Aarti Massey MD Unavailable [phone] Allergies Active Allergy Reactions Criticality Noted Date [...] 01/05/2022 Assessment & Plan (04/18/2021 8:06 AM MANAGER AUTOMOTIVE): -dating US completed today. -PNL ordered. We [...] Mother Colon cancer Neg Hx breast or rn gyn c ancer 04/07/01 Relation Name Status Comments [...] staff should administer the PHQ-9) 0 04/07/2021 Phoenix Depression Scale Answer Date Recorded Phoenix Depression Scale Total 1 01/05/2022 The thought of harming myself has occurred to me . Never 01/05/2022 Comments No Sex and Gender Information Value Date Recorded Sex Assigned at Not on file Legal Sex Female 2:36 AM MANAGER AUTOMOTIVE Gender Identity Not on file Sexual Orientation [...] N Livin g Cruz prince Complications:None Delivery Location:[facility] 2019 Para 10h 00m 3.118 kg (6 lb 14 oz) F Epidur al N Livin g Israeldevinmarga Beer Complications:None Delivery Location:[facility] 2021 Term 37w 5d 2h 12m 2h 07m/0h 02m/0h 03m 3.555 kg (7 lb 13.4 oz) F Vag-S pont Epidur al,Loc al N Livin g 9 9 ARIN AY,GIR MARIANOORXIOMY N Carlita bruno, Juanito ingram MD Complications:None Delivery Location:[facility] Last Filed Vital Signs Vital Sign Reading Time Taken Comments Blood Pressure 100/80 01/18/2023 9:36 AM CDT Pulse 80 01/18/2023 9:36 AM CDT Temperature 36.9 C (98.5 F) 04/17/2022 11:33 AM MANAGER AUTOMOTIVE Respiratory Rate 18 04/17/2022 11:50 AM MANAGER AUTOMOTIVE Oxygen Saturation 99% 04/17/2022 11:50 AM MANAGER AUTOMOTIVE Inhaled Oxygen Concentration - - Weight 125.2 kg (276 lb) 01/18/2023 9:36 AM CDT Height 165.1 cm (5' 5) 01/18/2023 9:36 AM CDT Body Mass Index 45.93 01/18/2023 9:36 AM CDT Plan of Treatment Health Maintenance Due Date Last Done Comments Varicella Vaccines (1 of 2 - 13+ 2-dose series) 2013 HPV Vaccines (1 - 3-dose series) 09/15/2015 Regular Well Visit/Exam 18-64 2018 Depression Screening 01/05/2023 01/05/2022, 04/07/20 21 Cervical Cancer Screening 01/05/2025 01/05/2022 Influenza Vaccine (#1) 2025 06/24/2021, 2014 DTaP/Tdap/Td Vaccine (5 - Td or Tdap) [...] HEPATITIS C ANTIBODY Routine 05/13/2021 12:50 PM MANAGER AUTOMOTIVE Encounter for supervision of other normal in first trimester 9 weeks gestation of from Last 3 Months or Most Recently Relevant to Health Maintenance Results * Pap with reflex to High Risk HPV (01/05/2022 12:06 PM CDT) CLINICAL INFORMATION: [facility] Comment:SCREENING LMP [facility] Comment:01-01-22 Previous Pap [facility] Comment:INFORMATION NOT PROV IDED Prev. Bx [facility] Comment:INFORMATION NOT PROV IDED SOURCE: [facility] Comment:Cervix, Endocervix Pap, specimen adequacy [facility] Comment: Satisfactory for evaluation. Endocervical/transformation zone component present. HPV interp [facility] Comment:Negative for intraep ithelial lesion or malignancy. COMMENTS [facility] Comment: This Pap test has been evaluated with computer assisted technology. Sports Official [facility] Comment: CBN, CT(ASCP) CT Screening location: [address] [address] Comment [facility] Comment: EXPLANATORY NOTE: The Pap is [...] MD LAB CYTOLOGY ORDERA BLES Final Result [address] [address] * Hepatitis C antibody (05/13/2021 12:50 PM MANAGER AUTOMOTIVE) Hep C Ab Nonreactive Nonreactive AJAY ASCENCIO [...] last revised on 2019. Testing performed by: [facility], [address] [place] [address], [place]., [address] Blood 05/13/2021 12:5 0 PM MANAGER AUTOMOTIVE 05/14/2021 9:39 AM MANAGER AUTOMOTIVE us Aarti Massey MD LAB MICROBI OLY - GENERAL ORDERABLES Edited Result - Final [facility] [address] [facility] [place] [address] from Last 3 Months or Most Recently Relevant to Health Maintenance Insurance [place] [address] [address] [place] [id number] Advance Directives For more information, please contact: [phone] * Full Code (Latest Code Status on File) Date Activated Date Inactivated Comments 10/21/2021 10:53 PM 10/23/2021 6:04 PM * Full Code Date Activated Date Inactivated Comments 10/21/2021 12:56 PM 10/21/2021 10:53 PM Full CPR i n case of cardiopulmonary arrest Care Teams Strip Polisher Relationship Specialty Start Date End Date Unknown, Notinfile PCP - General 10/13/21 Aarti Massey MD Consulting Physician Obstetrics and Gynecology 04/17/22
--- OUTSIDE RECORDS SUMMARY | 2025-02-24 10:32 | XMS_ITS | Encounter Summary ---
Author Organization [facility] Address [address] [place] [address] Phone Care Team Providers Care University President Name Role Phone Provider, Unknown Primary Care Provider Unavaila ble Encounter Details Date Type Department Care Team (Late st Contact Info) Description 01/26/2024 Lab [facility]quisition [facility] [address] [place] [address] Panda Navarrete, PAC [address] [place] [address] Encounter for pre-employment examination Social [...] 0.02 <8.01 IU/mL 01/28/2024 9:54 AM CDT [facility]TIGEN 1 0.03 <0.35 IU/mL 01/28/2024 9:54 AM CDT [facility]TIGEN 2 0.00 <0.35 IU/mL 01/28/2024 9:54 AM CDT [facility] MITOGEN CONTROL 9.98 >0.49 IU/mL 01/28/20 9:54 AM CDT [facility] INTEPRETATION TB NEGATIVE NEGATIVE, NEGATIVE (TB antigen response less than 25% of internal negative control value) 01/28/2024 9:54 AM CDT [facility] Comment:No immune response t o Mycobacterium tuberculosis antigens was noted. M. tuberculosis infection unlikely. Blood No Phlebotomy Charged / Unknown 01/26/2024 10:00 AM CDT 01/26/2024 12:32 PM CDT Narrative [facility] - 01/28/2024 9:54 AM CDT A POSITIVE [...] [facility] IMMUNOLOGY ORDERABLES Final Result [facility] [address] [place] [address], documented in this encounter Visit Diagnoses Diagnosis Encounter for pre-employment examination Health examination of defined subpopulation documented in this encounter Care Teams University President Relationship Specialty Start Date End Date Provider, Unknown UNKNOWN PCP - General 01/26/24 documented as of this encounter
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
[2025-02-24] MEDS: IBUPROFEN 600 MG TABLET PO (14:58)
[2025-02-24] MEDS: ACETAMINOPHEN 500 MG TABLET 1000 MG PO (14:58)
[2025-02-24] MEDS: CYCLOBENZAPRINE HCL 10 MG TABLET PO (14:58)
== END 2025-02-24 16:51 | disposition home or self-care (01) ==
PROVIDERS: Emergency Provider Emergency Medicine; PCP Internal Medicine Gastroenterology
DX: S09.90XA Unspecified injury of head, initial encounter (principal); M25.569 Pain in unspecified knee; V49.40XA Driver injured in collision with unspecified motor vehicles in traffic accident, initial encounter
CPT/HCPCS: 70450; 72125; 73562; 99284; A9270

== ENCOUNTER 2025-05-27 07:48 | Emergency (ER) | payer SELFPAY ==
--- OUTSIDE RECORDS SUMMARY | 2025-01-07 18:00 | XMS_ITS | Continuity of Care Document ---
Author Organization [facility] Address [address] [place] [phone] Phone Care Team Providers Care Transplant Nurse Practitioner Name Role Phone Rodo MOODY, FACC, Kajal Unavailable Unavailab le Procedures Procedure Date ELECTROCARDIOGRAM REPORT Advance Directives Directive Yes / No Effective Date File Name No Information Encounters Encounter Description Practice Location Reason(s) For Visit Diagnoses Date Provider Providers Copied on Encounter [facility], [address] [place] [address], [id number], tel:[phone] [facility] ER No Information Rodo Rdz. [address] [place] [address], [id number], . tel:[phone] Referring Provider: Kajal Koehler, [address] [place] [address], [id number]. tel:[phone] Family History Family Member Type Diagnosis Age At Onset No Information Payers Payer name Insurance type Covered constitution party ID Authoriza tion(s) No Information Social History Type Description Quantity Date Captured Comments Sex Female Smoking Status No Information Chief Complaint And Reason For Visit No Information Reason For Referral Reason For Referral No Information History Of Present Illness Encounter Date Complaint History Of Prese nt Illness No Information Functional Status Date Functional Assessmen t No Information Instructions Date Instruction Additional Infor mation No Information Assessments Type Assessment Date No Information Patient Care Teams Name Effective Dates (start - stop) Status Members No Information
--- OUTSIDE RECORDS SUMMARY | 2025-05-27 07:51 | XMS_ITS | Clinical Summary ---
Author Organization [facility] Address [address] [place] [address] Care Team Providers Care Coater Slate Name Role Phone Unavailable Primary Care Provider [...] HPV Vaccines (1 - 3-dose series) 09/15/2015 Hepatitis C 2018 DTaP, Tdap and Td Vaccines ( 1 - Tdap) 09/15/2019 Hepatitis B Vaccines (1 of 3 - 19+ 3-dose series) 09/15/2019 COVID-19 Vaccine (2024-2 6 season) 2025 Influenza Adult (#1) 2025 Hepatitis A Vaccines Aged Out No long er eligible based on patient's age to complete this topic Meningococcal B Vaccine Aged Out No l onger eligible based on patient's age to complete this topic Meningococcal Vaccine Aged Out No monika guy [...]
--- OUTSIDE RECORDS SUMMARY | 2025-05-27 07:51 | XMS_ITS | Encounter Summary ---
Author Organization [facility] Address [address] [place] [phone] Phone Care Team Providers Care Track Vehicle Repairer Name Role Phone Provider, Unknown Primary Care Provider Unavaila ble Encounter Details Date Type Department Care Team (Late st Contact Info) Description 01/26/2024 Lab Requisition [facility] Laboratory Services [address] [place] [address] Panda Navarrete, PAC [address] [place] [address] Encounter for pre-employment examination Social [...] 0.02 <8.01 IU/mL 01/28/2024 9:54 AM CDT [facility] TB ANTIGEN 1 0.03 <0.35 IU/mL 01/28/2024 9:54 AM CDT [facility] TB ANTIGEN 2 0.00 <0.35 IU/mL 01/28/2024 9:54 AM CDT [facility] MITOGEN CONTROL 9.98 >0.49 IU/mL 01/28/20 9:54 AM CDT [facility] INTEPRETATION TB NEGATIVE NEGATIVE, NEGATIVE (TB antigen response less than 25% of internal negative control value) 01/28/2024 9:54 AM CDT [facility] Comment:No immune response t o Mycobacterium tuberculosis antigens was noted. M. tuberculosis infection unlikely. Blood No Phlebotomy Charged / Unknown 01/26/2024 10:00 AM CDT 01/26/2024 12:32 PM CDT Narrative [facility] - 01/28/2024 9:54 AM CDT A [...] otherwise immunocompromised individuals. https://www.cdc.gov/tb/publications/guidelines/testing.htm us Panda Navarrete PAC IMMUNOLOGY ORDERABLES Final Result [facility] [address] [place] [address], documented in this encounter Visit Diagnoses Diagnosis Encounter for pre-employment examination Health examination of defined subpopulation documented in this encounter Care Teams Track Vehicle Repairer Relationship Specialty Start Date End Date Provider, Unknown UNKNOWN PCP - General 01/26/24 documented as of this encounter
--- OUTSIDE RECORDS SUMMARY | 2025-05-27 07:51 | XMS_ITS | Clinical Summary ---
Author Organization [facility] Address [address] [place] [address] Care Team Providers Care Art Therapy Certified Supervisor Name Role Phone Unknown, Notinfile Primary Care Provider Unavail able Aarti Massey MD Unavailable [phone] Allergies Active Allergy Reactions Criticality Noted Date [...] 01/05/2022 Assessment & Plan (04/18/2021 8:06 AM TRACK MAINTAINER): -dating US completed today. -PNL ordered. We [...] Mother Colon cancer Neg Hx breast or title assistant c ancer 04/07/01 Relation Name Status Comments [...] staff should administer the PHQ-9) 0 04/07/2021 [place] Depression Scale Answer Date Recorded [place] Depression Scale Total 1 01/05/2022 The thought of harming myself has occurred to me . Never 01/05/2022 Comments No Sex and Gender Information Value Date Recorded Sex Assigned at Not on file Legal Sex Female 2:36 AM TRACK MAINTAINER Gender Identity Not on file Sexual Orientation [...] N Livin g Cruz prince Complications:None Delivery Location:[facility] 2019 Para 10h 00m 3.118 kg (6 lb 14 oz) F Epidur al N Livin g Israeldevinmarga Beer Complications:None Delivery Location:[facility] 2021 Term 37w 5d 2h 12m 2h 07m/0h 02m/0h 03m 3.555 kg (7 lb 13.4 oz) F Vag-S pont Epidur al,Loc al N Livin g 9 9 ARIN AY,GIR MARIANOORXIOMY N Carlita bruno, Juanito ingram MD Complications:None Delivery Location:[facility] ([facility]) Last Filed Vital Signs Vital Sign Reading Time Taken Comments Blood Pressure 100/80 01/18/2023 9:36 AM CDT Pulse 80 01/18/2023 9:36 AM CDT Temperature 36.9 C (98.5 F) 04/17/2022 11:33 AM TRACK MAINTAINER Respiratory Rate 18 04/17/2022 11:50 AM TRACK MAINTAINER Oxygen Saturation 99% 04/17/2022 11:50 AM TRACK MAINTAINER Inhaled Oxygen Concentration - - Weight 125.2 [...] HEPATITIS C ANTIBODY Routine 05/13/2021 12:50 PM TRACK MAINTAINER Encounter for supervision of other normal in first trimester 9 weeks gestation of from Last 3 Months or Most Recently Relevant to Health Maintenance Results * Pap with reflex to High Risk HPV (01/05/2022 12:06 PM CDT) CLINICAL INFORMATION: [facility] Comment:SCREENING LMP [facility] Comment:01-01-22 Previous Pap [facility] Comment:INFORMATION NOT PROV IDED Prev. Bx [facility] Comment:INFORMATION NOT PROV IDED SOURCE: [facility] Comment:Cervix, Endocervix Pap, specimen adequacy [facility] Comment: Satisfactory for evaluation. Endocervical/transformation zone component present. HPV interp [facility] Comment:Negative for intraep ithelial lesion or malignancy. COMMENTS [facility] Comment: This Pap test has been evaluated with computer assisted technology. Head Stock Transfer Clerk [facility] Comment: CBN, CT(ASCP) CT Screening location: [address] [address] Comment [facility] Comment: EXPLANATORY NOTE: The Pap is a [...] MD LAB CYTOLOGY ORDERA BLES Final Result [address] [address] * Hepatitis C antibody (05/13/2021 12:50 PM TRACK MAINTAINER) Hep C Ab Nonreactive Nonreactive AJAY ASCENCIO [...] last revised on 2019. Testing performed by: [facility], [address] [place] [address], [place]., [address] Blood 05/13/2021 12:5 0 PM TRACK MAINTAINER 05/14/2021 9:39 AM TRACK MAINTAINER us Aarti Massey MD LAB MICROBI OLY - GENERAL ORDERABLES Edited Result - Final [facility] Department [place] [address] from Last 3 Months or Most Recently Relevant to Health Maintenance Insurance [facility] [place] [address] [address] [place] [id number] Advance Directives For more information, please contact: [phone] * Full Code (Latest Code Status on File) Date Activated Date Inactivated Comments 10/21/2021 10:53 PM 10/23/2021 6:04 PM * Full Code Date Activated Date Inactivated Comments 10/21/2021 12:56 PM 10/21/2021 10:53 PM Full CPR i n case of cardiopulmonary arrest Care Teams Art Therapy Certified Supervisor Relationship Specialty Start Date End Date Unknown, Notinfile PCP - General 10/13/21 Aarti Massey MD Consulting Physician Obstetrics and Gynecology 04/17/22
--- OUTSIDE RECORDS SUMMARY | 2025-05-27 07:51 | XMS_ITS | Clinical Summary ---
Author Organization [facility] Address [address] [place] [address] Phone Care Team Providers Care Shell Molder Name Role Phone Provider, Unknown Primary Care [...] of 3 - 3-dose series) 2000 2000 Varicella Immunization (1 of 2 - 13+ 2-dose series) 2013 Human Papillomavirus (HPV) Immunization (1 - 3-dose [...] age to complete this topic Care Teams Shell Molder Relationship Specialty Start Date End Date Provider, Unknown UNKNOWN PCP - General 01/26/24
--- OUTSIDE RECORDS SUMMARY | 2025-05-27 07:51 | XMS_ITS | Data Portability ---
Author Organization [facility] Address [address] [place] [address] Assessment Encounter Date Assessment Date Assessment LastModified [...] Follow up for WWE in 1 year [email or web address] Not available 07/03/2020 12:24:02 Plan of Treatment Reminders Order Date Submit Date Provider Last Modified By Organization Details Last Modified Time Details Appointments None recorded. Lab CT + NG DNA, PCR, unspecifie d specimen 2020 021 [place] [facility] ([facility]), [address] [facility] , [address], [place], [address], 09:06:31 Referral None recorded. Procedures None recorded. Surgeries None recorded. Imaging None recorded. Medication Orders Diflucan 150 mg tablet 2020 021 [facility] [id number], [address], 12:21:17 Microgesti n FE 06/26 (28) 1 mg-20 mcg (21)/75 mg (7) tablet 2020 021 [email or web address] [id number], [address], [place], [address], 22:37:16 Loestrin Fe 06/26 (28-Day) 1 mg-20 mcg (21)/75 mg (7) tablet [email or web address] [id number], [address], [place], [place], [id number], 12:02:49 Patient TargetsNo targets recorded. Patient InstructionsNo instructions recorded. Reason for Referral None Reported. Results Created Date Observation Date Name Description Value Unit Range Abnormal Flag Note LastModifiedBy Organization Detail LastModifiedTime 09/13/1909/14/2019 prena mildred panel WBC 7.1 K/uL 3.8-11 .5 Not Available [facility] ([facility]) [address] [place] [address] [address], [place], [address], 2019 17:05:53 09/13/1909/14/2019 prena mildred panel red blood cell count (RBC) 4.03 M/mm3 3.60-5 .30 Not Available [facility] ([facility]) [address] [place] [address] Dr [address], [place], [address], 2019 17:05:53 09/13/1909/14/2019 prena mildred panel hemoglobin (HGB) 12.5 gm/dL 11.5-1 5.5 Not Available [facility] ([facility]) [address] [place] [address] Dr [address]ras, [place], [address], 2019 17:05:53 09/13/19 20 2019 prena mildred panel hematocrit (HCT) 37.9 % 35.2-4 6.4 Not Available [facility] ([facility]) [facility] [facility] [address], [place], [address], 2019 17:05:53 09/13/19 20 2019 prena mildred panel MCV 94.0 fL 79.0-9 9.0 Not Available [facility] ([facility]) [address] [place] [address] Dr [address], [place], [address], 2019 17:05:53 09/13/19 20 2019 prena mildred panel MCH 31.0 pg 26.9-3 5.0 Not Available [facility] ([facility]) [address] [place] [address] Dr [address]ras, [place], [address], 2019 17:05:53 09/13/19 20 2019 prena mildred panel MCHC 33.0 g/dL 30.4-3 4.8 Not Available [facility] ([facility]) [address] [place] [address], [place], [address], 2019 17:05:53 09/13/19 20 2019 prena mildred panel RDW 43.0 fL 38.6-5 3.8 Not Available [facility] -[facility] ([facility]) [address] [place] [address] Dr [address], [place], [address], 2019 17:05:53 09/13/19 20 2019 prena mildred panel platelet count 235 K/cum m 137-39 7 Not Available [facility] ([facility]) [address] [place] [address] Dr [address], [place], [address], 2019 17:05:53 09/13/19 20 2019 prena mildred panel neutrophils automated 72.0 % 41.0-7 7.0 Not Available [facility] ([facility]) [address] [place] [address] Dr [address], [place], [address], 2019 17:05:53 09/13/19 20 2019 prena mildred panel lymphocytes automated 21.7 % 14.0-4 8.0 Not Available [facility] ([facility]) [address] [place] [address] Dr [address]ras, [place], [address], 2019 17:05:53 09/13/19 20 2019 prena mildred panel monocytes automated 5.4 % 4.0-13 .0 Not Available [facility] ([facility]) [address] [place] [address] Dr [address]ras, [place], [address], 2019 17:05:53 09/13/19 20 2019 prena mildred panel eosinophils automated 0.3 % 0.0-8. 0 Not Available [facility] ([facility]) [address] [place] [address] Dr [address]ras, [place], [address], 2019 17:05:53 09/13/19 20 2019 prena mildred panel basophils automated 0.3 % 0.0-1. 5 Not Available [facility] ([facility]) [address] [place] [address] Dr [address]ras, [place], [address], 2019 17:05:53 09/13/19 20 2019 prena mildred panel immature granulocyte automated 0.3 % 0.0-1. 0 Not Available [facility] ([facility]) [address] [place] [address] Dr [address]reras, [place], [address], 2019 17:05:53 09/13/19 20 2019 prena mildred panel ABO type, blood bank A Not Available [facility] ([facility]) [address] [place] [address] Dr [address], [place], [address], 2019 17:05:53 09/13/19 20 2019 prena mildred [...] vj depar tment . Not Available [facility] ([facility]) [facility] [facility] [address], [place], [address], 2019 17:05:53 09/13/19 20 2019 prena mildred panel antibody screen, reflex to identificati on NEGATI VE negati ve Not Available [facility] ([facility]) [facility] [facility] [address], [place], [address], 2019 17:05:53 09/13/19 20 2019 prena mildred panel rubella antibody, IgG 68.9 IU/mL >9.9 INTER PRETA TION OF RESUL TS < 10.0 Non-i mmune /Non- react arielle >= 10.0 Immun e/Willow ctive Prese nce of antib odies to Rubel la is presu mptiv e evide nce of immun ity excep t when acute infec tion is suspe cted. Not Available [facility] ([facility]) [facility] [facility] [address], [place], [address], 2019 17:05:53 09/13/19 2019 prena mildred panel hemoglobin A1C 4.5 % <5.7 The follo wing HbA1c range s recom kasia d by the Alonzo ceballos Diabe lillian Assoc iatio n (ADA) may be used as an aid in the diagn osis of diabe lillian dexteri tus. HA1c Sugge sted Diagn osis >=6.5 % Diabe tic 5.7% - 6.4% Pre-D iabet ic <5.7% Non-D iabet ic Not Available [facility] ([facility]) [facility] [address], [place], [address], 2019 17:05:53 09/13/19 20 2019 prena mildred panel HIV 1/2 Ab screen w/p24ag Nonrea ctive nonrea ctive Not Available [facility] ([facility]) [facility] [address], [place], [address], 2019 17:05:53 09/13/19 20 2019 prena mildred panel hepatitis B surface antigen (HBsAg) Nonrea ctive nonrea ctive Not Available [facility] ([facility]) [facility] [address], [place], [address], 2019 17:05:53 09/13/19 20 2019 prena mildred panel hepatitis C antibody (HCV) IgG Nonrea ctive nonrea ctive Not Available [facility] ([facility]) [address] [place] [address], [place], [address], 2019 17:05:53 09/13/19 20 2019 prena mildred panel syphilis screening profile, treponemal antibody Nonrea ctive nonrea ctive Not Available [facility] ([facility]) [facility] [address], [place], [address], 2019 17:05:53 09/13/1909/14/2019 estim ated avera ge gluco se estimated average glucose 82 mg/dL [place] ge Gluco se is calcu lated using the equat ion AG = (28.7 x HgbA1 c) - 46.7 based on the guide lines estab ang terrell by the ADA. Not Available [facility] ([facility]) [facility] [facility] [address], [place], [address], 2019 17:05:53 09/13/1909/15/2019 cultu re, urine specimen source Urine - Not Specif ied Not Available [facility] ([facility]) [address] [place] [address] Dr [address]ras, [place], [address], 09/19/2019 09:16:28 09/13/1909/15/2019 cultu re, urine culture, urine See Below See Micro biolo gy Repor t Not Available [facility] ([facility]) [address] [place] [address] Dr [address], [place], [address], 09/19/2019 09:16:28 09/13/1909/15/2019 cultu re, urine escherichia coli >100,0 00 CFU/ml Escher ichia coli Not Available [facility] ([facility]) [address] [place] [address] Dr [address]ras, [place], [address], 09/19/2019 09:16:28 09/13/1909/15/2019 cultu re, urine sensitivity [...] R=RES ISTAN T Not Available [facility]) [address] [facility], [place], [address], 09/19/2019 09:16:28 09/13/1909/13/2019 drug scree n, urine Amphetamines : negati ve Not Available [facility] [address], [place], [address], 09/13/2019 12:46:16 09/13/1909/13/2019 drug scree n, urine Cannabinoids : negati ve Not Available [facility] [address], [place], [address], 09/13/2019 12:46:16 09/13/19 20 09/13/2019 drug scree n, urine Cocaine: negati ve Not Available [facility] [address], [place], [address], 09/13/2019 12:46:16 09/13/19 20 09/13/2019 drug scree n, urine Opiates: negati ve Not Available [facility] [address], [place], [address], 09/13/2019 12:46:16 09/13/19 20 09/13/2019 drug scree n, urine Phenocyclidi ne: negati ve Not Available [facility] [address], [place], [address], 09/13/2019 12:46:16 09/13/19 20 09/13/2019 drug scree n, urine Barbiturates : negati ve Not Available [facility] [address], [place], [address], 09/13/2019 12:46:16 09/13/19 20 09/13/2019 drug scree n, urine Benzodiazepi ada: negati ve Not Available [facility] [address], [place], [address], 09/13/2019 12:46:16 09/22/19 20 09/25/2019 strep tococ cus group B DNA GB specimen source Vagina l/Rect al Not Available [facility] ([facility]) [address], [place], [address], 09/25/2019 12:06:14 09/22/19 20 09/25/2019 strep tococ cus group B DNA spec type Cultur e Swab Not Available [facility] ([facility]) [address], [place], [address], 09/25/2019 12:06:14 09/22/19 20 09/25/2019 strep tococ [...] zing real- time PCR. Perfo rmed by [facility] d[facility]b/a [facility], [address] [facility], [place] [address] , Manolo Pulliam ra, DO, Labor atory Direc tor. Not Available [facility] ([facility]) [address] [facility], [place], [address], 09/25/2019 12:06:14 08/14/19 21 08/13/2020 beta- HCG, [...] Weeks 8,099 - 58,17 6 Not Available [facility] (Lab) [address] [place], [address], 08/14/2020 14:11:58 08/14/19 21 08/13/2020 beta- HCG, [...] Weeks 8,099 - 58,17 6 Not Available [facility] (Lab) [address], [place], [address], 08/15/2020 09:49:53 09/16/19 20 09/13/2019 US, obste tric, 2nd or 3rd trime ster No observ ation record ed. [email or web address] Not Available 0 09/19/2019 18:03:49 Result Notes None recorded. 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 12:03:27 Amenorrh ea [id number] Completed 201407/03/2020 Absence of menstrua tion;Rec orded Elsewher e: No Locat ion: [facility] S ource: EHR Soldering Machine Operator christiano: N Wandati ce ID: 0001 Eric lable Time: 11:00:00 AM Kimberley maxwell, [facility] 12:03:08 Pregnanc y test positive [id number] Completed 201407/03/2020 Pregnanc y examinat ion or test, positive result;R ecorded Elsewher e: No Locat ion: [facility] S ource: EHR Soldering Machine Operator christiano: N Wandati ce ID: 0001 Eric lable Time: 11:00:00 AM Kimberley maxwell [facility] 12:03:17 Primigra ayana [id number] Completed 201407/03/2020 Supervis ion of normal first pregnanc y;Record ed Elsewher e: No Locat ion: [facility] S ource: EHR Soldering Machine Operator christiano: N Wandati ce ID: 0001 Eric lable Time: 10:30:00 AM Kimberley maxwell [facility] 01/27/202 1 12:03:24 Antenata l screenin g Completed 201407/03/2020 ANTENATA L SCREENIN G NEC;Juan José rded Elsewher e: No Locat ion: [facility] S ource: EHR Soldering Machine Operator christiano: N Practi ce ID: 0001 Eric lable Time: 04:00:00 PM Kimberley maxwell, [facility] 1 12:03:09 Pregnanc y, childbir th and puerperi um finding Completed 201407/03/2020 Encounte r for supervis ion of normal first pregnanc y, second trimeste r;Record ed Elsewher e: No Locat ion: [facility] S ource: EHR Soldering Machine Operator crhistiano: N Practi ce ID: 0001 Eric lable Time: 04:45:00 PM Kimberley maxwell, [facility] 1 12:03:18 Pregnanc y, childbir th and puerperi um finding Completed 201507/03/2020 Encounte r for supervis ion of normal first pregnanc y, third trimeste r;Record ed Elsewher e: No Locat ion: [facility] S ource: EHR Soldering Machine Operator christiano: N Practi ce ID: 0001 Eric lable Time: 04:30:00 PM Kimberley maxwell, [facility] 1 12:03:20 Prematur e rupture of membrane s [id number] Completed 201507/03/2020 Full-ter m cristin ROM, unsp time betw rupture and onset labor;Pr actice ID: 0001 Kimberley maxwell, [facility] 12:03:21 Gestatio n period, 38 weeks [id number] Completed 201507/03/2020 38 weeks gestatio n of pregnanc y;Practi ce ID: 0001 Kimberley Adrien maxwell, [facility] 12:03:11 Term pregnanc y delivere d [id number] Completed 201507/03/2020 Encounte r for full-ter m uncompli cated delivery ;Practic e ID: 0001 Kimberley Jurado [facility] 1 12:03:29 Single live from singleto n pregnanc y [id number] Completed 201507/03/2020 Single live ;Pr actice ID: 0001 [facility] 12:03:25 Lochia finding Completed 201507/03/2020 Encounte r for routine postpart um follow-u p;Record ed Elsewher e: No [facility] S ource: EHR Soldering Machine Operator christiano: N Practi ce ID: 0001 Eric lable Time: 02:30:00 PM Kimberley Jurado [facility] 1 12:03:14 Pregnanc y [id number] Completed 201905/22/2020 [facility] 0 16:39:58 Late entry into care [id number] Completed 2019 Blas Lim [facility] 0 16:39:55 Obesity 775474671 Completed 201909/19/2019 Reviewed with SB- not really obese. No need for NSTs. Oliviahortencia Saunders [facility] 0 11:55:15 Late entry into care [id number] Completed 201907/03/2020 Kimberley Jurado [facility] 1 12:03:12 Problem Notes None recorded. Medical Equipment None Reported. Allergies Allergen ID Allergen Name Allergen Category Reaction Reaction Severity Criticality Documentation Date Start Date Code Code System Note Provider Name and Address Organization Details Recorded Time 47 amoxicill in medicatio n Not available Not available Not available 09/13/2019 723 RxNorm Елена Martell [facility], [place] - [facility] 0 12:17:52 Medications Name Sig Start [...] Prescrib ed Elsewher e: No Locat ion: [facility] M odify By: sailaja barajas DateTime : [...] Prescrib ed Elsewher e: No Locat ion: [facility] M odify By: sailaja barajas DateTime : 06/13/19 16 02:56:55 PM Not Available Not Available Not Available griseoful elijah ultramicr osize 250 mg tablet active Not Available Not Available No t Available 06/26 (28) 1 mg-20 mcg (21)/75 mg (7) tablet TAKE 1 TABLET BY MOUTH EVERY DAY active Not Available Not Available No t Available [employer]-PNV-DH A 28 mg iron-1 mg-200 mg capsule take 1 capsule by oral route every day 07/03 completed Prescrib aric Shell e: Sara Locat ion: [facility] M odjazzy By: cmedical Encount er DateTime : 01/19/20 03:35:33 PM Not Available Not Available Not Available Vitals Date Recorded Body height Body mass index (BMI) [Percentile] Per age and sex Body mass index (BMI) Body weight Systolic And Diastolic Provider Name and Address Organization Details Last Updated DateTime 07/03/2020 162.56 cm 98 % 37.6 kg/m2 16870.7 3 g 119/83 mm[Hg] Kimberley Jurado [facility] 1 12:02:46 Date Recorded Body height Body mass index (BMI) Body mass index (BMI) [Percentile] Per age and sex Body weight Systolic And Diastolic Provider Name and Address Organization Details Last Updated DateTime 09/22/2019 162.56 cm 35.9 kg/m2 98 % 14694.8 0533 g 110/72 mm[Hg] Елена Martell [facility] 0 09:45:22 Date Recorded Body height Body mass index (BMI) [Percentile] Per age and sex Body mass index (BMI) Body weight Systolic And Diastolic Provider Name and Address Organization Details Last Updated DateTime 09/28/2019 162.56 cm 98 % 35.9 kg/m2 86457.8 0533 g 120/79 mm[Hg] Aisha Asher [facility] 0 10:25:11 Date Recorded Body height Body mass index (BMI) [Percentile] Per age and sex Body mass index (BMI) Body weight Systolic And Diastolic Provider Name and Address Organization Details Last Updated DateTime 10/05/2019 162.56 cm 98 % 36 kg/m2 32168.3 977 g 111/71 mm[Hg] Aisha Asher [facility] 0 10:19:10 Date Recorded Body weight Provider Name an d Address Organization Details Last Updated DateTime 12/07/2019 88710.474 g Blas Lim [facility] 05/22/2020 16:39:55 Date Recorded Body height Body mass index (BMI) [Percentile] Per age and sex Body mass index (BMI) Systolic And Diastolic Provider Name and Address Organization Details Last Updated DateTime 12/07/2019 162.56 cm 97 % 34.3 kg/m2 127/82 mm[Hg] Aisha Asher [facility] 12/07/2019 12:48:11 Social History None recorded. Functional Status Question Answer Note LastModified by Organizat ion Details LastModified Time What is your level of alcohol consumption? None [id number] Information not available 04/09/2020 What is your exercise level? Occasional walking [id number] Information not available 04/09/2020 Mental Status None [...] Diagnosis SNOMED-CT Code Diagnosis ICD10 Code Diagnosis IMO Codes Diagnosis Note 190 Shai Macias MD [facility] [address] [address] 09/13/2019 11:32:51 09/13/2019 14:30:13 Routine care [id number] Z34.83 1137 Shai Macias MD [facility] [address] [address] 09/22/2019 09:35:13 09/22/2019 10:38:35 Routine care 319114975 Z34.90 1702 Rayne Davenport CNM [facility] [address],[place] [address] 09/28/2019 10:15:11 09/28/2019 11:35:38 Routine care 578610042 Z34.93 RTC for routine visit in 1 week. 2574 Rayne Davenport [facility] [address],[place] [address] 10/05/2019 09:58:01 10/05/2019 16:56:03 Routine care 993903371 Z34.93 77531 Rayne Davenport [place] [address] [address] 12/07/2019 12:23:07 12/07/2019 14:51:09 state 59754601 Z39.2 Continue to watch for signs/symp toms [...] paper copy of today's plan if desired. [facility] [id number] Z30.9 Discussed all control options in great [...] read and signed. [place]. [address] Jacklyn Hawkins MD [facility] [address] [address] 07/03/2020 11:48:10 07/03/2020 12:47:13 Candidal vulvovaginitis 73358150 B37.3 Initial pr escription of oral contraception 956992651 Z30.011 Venereal d isease screening 461058417 Z11.3 Health Concerns Section Related Observation LastModified by Organization Detai ls LastModified Time None Recorded Concern Status LastModified by Organization Details LastModified Time None Recorded Advance Directives Directive None Recorded Payers Insurance Date Sequence Insurance Name Policy Number Policy Lau Covered Member ID Lau Member ID Guarantor Name 07/03/2020 1 [employer] [id number] Vin Allred McMurray [id number] Shant Carrollurray 03/18/2020 *SELF PAY* Julian patricio McMurray 04/15/2020 *SELF PAY* Julian Torres 08/14/2020 1 [employer] [place] - DOS ON OR AFTER 2020 (MEDICAID REPLACEMENT - HMO) Shant Melissa [id number] Shant Torres 11/20/2020 2 [place] [facility] [employer] Shant Torres [id number] Shant Torres Notes Date Note Type Note Provider Name and Address Organization Details Recorded Time 09/22/2019 text/html Generic HPI TemplateReported by Patient Shai Macias MD [address], [place], [address], , P.C. 09/22/2019 10:35:28 09/28/2019 text/html Generic HPI TemplateReported by PatientRoutine Rayne maxwell [facility] 10/02/2019 09:49:44 10/05/2019 text/html Generic HPI TemplateReported by Patient Rayne maxwell [facility] 10/10/2019 14:54:02 12/07/2019 text/html VisitReported by PatientCHLOÉ 5-5. Bleeding stopped. Period resumed. Bottle feeding. Doing well. Rayne maxwell [facility] 12/07/2019 13:19:58 07/03/2020 text/html Pt is a 19yo here complaining of feeling like there is TP sticking in her vagina but there isn't. Feels like something is sitting at opening. Since yesterday. Denies paiin, some itching. Additional concerns: sexually active:yes contraception:none. started ocp in December, after 2 mos insurance wouldn't cover that one. wants to restart. Last annual exam: none Jacklyn Hawkins MD [address], [place], [address], [facility] 07/03/2020 12:24:42 OBGyn Episode Ob Episode Information Episode Created Date Number of Fetuses Patient Bloodtype Patient rh Status Prepregnancy Weight lbs Domestic Partner Domestic Partner Phone Father Name Solar Project Coordination Specialist Status 09/13/19 20 1 CLOSED Fetus Data [...] Domestic Partner Domestic Partner Phone Father Name Solar Project Coordination Specialist Status 09/13/19 20 1 A Positive CLOSED Fetus Data First Name Last Name Admitted to NICU Weight (g) Sex Living Outcome Pediatric Complications Fetus ID Race Codes Race Delivery Type 3118.44 5 F true Full Term [id number] Forcep Assisted Vaginal Delivery Problems Problem Notes LMP 8-6 Problem Name Start Date End Date Resolution Snomed Code Not e Late entry into care 09/13/2019 [id number] Gideon Calculation Initial Gideon Date Initial Exam [...] Weight in lbs Pre/Post Dialysis Refused Weight 205.799514023124 BP Diastolic BP Location Tested BP Systolic BP Type 82 118 Fetus Heart Rate Present Fetus Movement Comments Flowsheet Date 09/13/2019 Garza Score Blood Edema Fundus Height Fundus Units Glucose Ketones Leukocytes Nitrite Labor Signs Protein Cervic Dilation Cervic Effacement Cervic Station trace 34 none trace Type Weight in lbs Pre/Post Dialysis Refused Weight 205.845091307186 BP Diastolic BP Location Tested BP Systolic BP Type 82 118 Fetus Heart Rate Present A 140 Fetus Movement A Yes Comments Flowsheet Date 09/22/2019 Garza Score Blood Edema Fundus Height Fundus Units Glucose Ketones Leukocytes Nitrite Labor Signs Protein Cervic Dilation Cervic Effacement Cervic Station trace Type Weight in lbs Pre/Post Dialysis Refused Weight 209.127457688467 BP Diastolic BP Location Tested BP Systolic BP Type 72 110 Fetus Heart Rate Present Fetus Movement Comments Flowsheet Date 09/28/2019 Garza Score Blood Edema Fundus Height Fundus Units Glucose Ketones Leukocytes Nitrite Labor Signs Protein Cervic Dilation Cervic Effacement Cervic Station 37 trace Type Weight in lbs Pre/Post Dialysis Refused Weight 209.386276545630 BP Diastolic BP Location Tested BP Systolic BP Type 79 120 sitting Fetus Heart Rate Present A 130 Fetus Movement A Yes Comments Pt late to care. Having a gi rl Kirit. Pt desires 39 week induction. Will discuss further next week. Labor precautions discussed. Flowsheet Date 10/05/2019 Garza Score Blood Edema Fundus Height Fundus Units Glucose Ketones Leukocytes Nitrite Labor Signs Protein Cervic Dilation Cervic Effacement Cervic Station 38 trace Type Weight in lbs Pre/Post Dialysis Refused Weight 210.880323884197 BP Diastolic BP Location Tested BP Systolic [...] Weight in lbs Pre/Post Dialysis Refused Weight 200.469564529982 BP Diastolic BP Location Tested BP Systolic [...] Estim ated Date of Delivery false Thalassemia (Swedish, Irish, Mediterranean, Or Background): MCV < 80 false Neural Tube Defect (Meningomyelocele, Spina Bifi da, Or Anencephaly) false Congenital Heart Defect false Down Syndrome false Natalio-Sachs (eg, Amish, Cajun, Cymraes-Uvalda) f alse Ryan Disease false Sickle Cell Disease Or Trait () false Hemophilia Or Other Blood Disorders false Muscular Dystrophy false Cystic Fibrosis false Richard's Chorea false Intellectual Disability/Autism false If Yes, [...] Domestic Partner Domestic Partner Phone Father Name Solar Project Coordination Specialist Status 11/01/19 20 1 DELETED Gideon Calculation [...]
--- OUTSIDE RECORDS SUMMARY | 2025-05-27 07:51 | XMS_ITS | Clinical Summary ---
Author Organization [facility] Address [address] [place] [address] Care Team Providers Care Reinforcement Maker Name Role Phone Arturo Lion MD Primary Care Provider [phone] Source Comments [facility],non-owned Affiliates and Associated Physician Practices is amultiple site organization consisting of ambulatory clinics and hospital sitesin [place], [place], [place] and [place]. This disclosure is being madepursuant to the Care Everywhere program and may not contain all information available regarding this patient. 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 Gender Identity Not on file Sexual Orientation Not on file Plan of Treatment Health Maintenance Due Date Last Done Comments HIV SCREENING 09/15/2015 HPV VACCINE (1 - 3-dose series) 09/15/2015 CHLAMYDIA/GONORRHEA SCREENING 2016 HEPATITIS C SCREENING 09/10/2018 DTAP/TDAP/TD VACCINES (1 - Tdap) 09/15/2019 HEPATITIS B VACCINE (1 of 3 - 19+ 3-dose series) 09/15/2019 DEPRESSION SCREENING 06/07/2024 COVID-19 VACCINE ( - 2024-2 6 season) 2025 INFLUENZA VACCINE (#1) 2025 ZOSTER [...] complete this topic Insurance [employer] Care Teams Reinforcement Maker Relationship Specialty Start Date End Date Arturo Lion MD [address] [place] [address] PCP - General Family Medicine 07/14/12
[2025-05-27 08:07] VITALS: BP 123/80; PULSE 81; RESP 18; TEMP 36.4; O2SAT 99
--- OUTSIDE RECORDS SUMMARY | 2025-05-27 09:45 | XMS_ITS | Encounter Summary ---
Author Organization [facility] Address [address] [place] [phone] Phone Care Team Providers Care Contact Center Engineer Name Role Phone Provider, Unknown Primary Care Provider Unavaila ble Encounter Details Date Type Department Care Team (Late st Contact Info) Description 01/26/2024 Lab Requisition [facility] [address] [place] [address] Panda Navarrete, PAC [address] [place] [address] Encounter for pre-employment examination Social [...] 0.02 <8.01 IU/mL 01/28/2024 9:54 AM CDT [facility] TB ANTIGEN 1 0.03 <0.35 IU/mL 01/28/2024 9:54 AM CDT [facility] TB ANTIGEN 2 0.00 <0.35 IU/mL 01/28/2024 9:54 AM CDT [facility] MITOGEN CONTROL 9.98 >0.49 IU/mL 01/28/20 9:54 AM CDT [facility] INTEPRETATION TB NEGATIVE NEGATIVE, NEGATIVE (TB antigen response less than 25% of internal negative control value) 01/28/2024 9:54 AM CDT [facility] Comment:No immune response t o Mycobacterium tuberculosis antigens was noted. M. tuberculosis infection unlikely. Blood No Phlebotomy Charged / Unknown 01/26/2024 10:00 AM CDT 01/26/2024 12:32 PM CDT Narrative [facility] - 01/28/2024 9:54 AM CDT A [...] Panda Navarrete PAC IMMUNOLOGY ORDERABLES Final Result [facility] [address] [place] [address], documented in this encounter Visit Diagnoses Diagnosis Encounter for pre-employment examination Health examination of defined subpopulation documented in this encounter Care Teams Contact Center Engineer Relationship Specialty Start Date End Date Provider, Unknown UNKNOWN PCP - General 01/26/24 documented as of this encounter
--- OUTSIDE RECORDS SUMMARY | 2025-05-27 09:45 | XMS_ITS | Data Portability ---
Author Organization SONIA Jenkins [facility] Address [address] [place] [address] Assessment No assessment recorded. Plan of Treatment Reminders Order Date Submit Date Provider Last Modified By Organization Details Last Modified Time Details Appointments None recorded. Lab CMP, serum or plasma 2023 024 TOAN BLOUNT, Cheyanne Garcia, [address], [place], [address], 4 06:16:34 TSH + free T4, serum 2023 024 TOAN BLOUNT, Cheyanne Garcia, [address], [place], [address], 4 06:16:12 HbA1c (hemoglobi n A1c), blood 2023 024 TOAN BLOUNT, Cheyanne Garcia, [address], [place], [address], 4 06:16:13 CBC 2023 024 TOAN BLOUNT, Cheyanne Garcia, [address], [place], [address], 4 06:16:34 vitamin B12 + folate, serum or blood 2023 024 Cheyanne FERNANDEZ, [address], [place], [address], 4 06:16:13 Referral otolaryngo logist referral 2023 024 TOAN Borges MD, [address] , [place], [address], 5 11:56:13 Procedures None recorded. Surgeries None recorded. Imaging None recorded. Medication Orders selenium sulfide 2.25 % shampoo 2023 024 [facility]/Pharmacy #[id number], [address], [place], [address], 4 11:44:14 sertraline 50 mg tablet 2023 024 [facility]/Pharmacy #[id number], [address], [place], [address], 4 11:44:15 griseofulv in ultramicro size 250 mg tablet 2021 022 [facility]/Pharmacy #[id number], [address] [place], [address], 4 11:08:25 ofloxacin 0.3 % ear drops 2021 022 [facility]/Pharmacy #[id number], [address] [place], [address], 4 11:08:08 hydroxyzin e HCl 10 mg tablet 2021 022 [facility]/Pharmacy #[id number], [address] [place], [address], 4 11:08:22 griseofulv in ultramicro size 250 mg tablet 2020 021 [id number], [address] [place], [address], 4 11:08:25 hydroxyzin e HCl 10 mg tablet 2020 021 [email or web address] [id number], [address], [place], [address], 4 11:08:22 selenium sulfide 2.25 % shampoo 2020 021 [email or web address] [facility][id number], [address], [place], [address], 4 11:40:25 griseofulv in ultramicro size 250 mg tablet 2020 021 [email or web address] [facility]/Pharmacy #[id number], [address], [place], [address], 4 11:08:25 Patient TargetsNo targets recorded. Patient Instructions Encounter Date Encounter Id Patient Instructions Last Modified By Organization Details Last Modified Time 08/21/2020 [id number] discussed ways t o quit tobacco ; and advised not to vape and why .. 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 Referral fo r Impacted cerumen of bilateral ears Referring Physician: Kapil Belle, Internal Medicine, Encounter Date: 06/15/2023 Results Created Date Observation Date Name Description Value Unit Range Abnormal Flag Note LastModifiedBy Organization Detail LastModifiedTime 06/15/19 24 06/16/2023 TSH+F REE T4 TSH 5.840 uIU/m L 0.450- 4.500 above high normal Not Available [facility] ([facility]) [address] [place], [address], 06/16/2023 06:16:12 06/15/1906/16/2023 TSH+F REE T4 T4,free(dire ct) 1.04 NG/dL 0.82-1 .77 Not Available [facility] ([facility]) [address] [place], [address], 06/16/2023 06:16:12 06/15/1906/16/2023 VITAM IN B12 AND FOLAT E vitamin B12 707 pg/mL 232-12 45 Not Available [facility] ([facility]) [address] [place], [address], 06/16/2023 06:16:13 06/15/1906/16/2023 VITAM IN B12 AND FOLAT E folate (folic acid), serum 5.6 NG/mL >3.0 A serum folat e ladonna ntrat ion of less than 3.1 ng/mL is consi dered to repre sent clini sai defic iency . Not Available [facility] ([facility]) [address] [place], [address], 06/16/2023 06:16:13 06/15/1906/16/2023 HEMOG LOBIN A1C hemoglobin A1C 5.3 % 4.8-5. 6 Predi abete s: 5.7 - 6.4 Diabe lillian: >6.4 Glyce fernando contr ol for adult s with diabe lillian: <7.0 Not Available [facility] ([facility]) [address] [place], [address], 06/16/2023 06:16:13 06/15/1906/15/2023 COMP. METAB OLIC PANEL (14) glucose 91 mg/dL 70-99 Not Available [facility] [address] [place], [address], 06/16/2023 06:16:34 06/15/19 24 06/15/2023 COMP. METAB OLIC PANEL (14) BUN 18 mg/dL 6-20 Not Available [facility] [address] [place], [address], 06/16/2023 06:16:34 06/15/19 24 06/15/2023 COMP. METAB OLIC PANEL (14) creatinine 0.81 mg/dL 0.76-1 .27 Not Available [facility] [address] [place] [address], [address], 06/16/2023 06:16:34 06/15/19 24 06/15/2023 COMP. METAB OLIC PANEL (14) eGFR 105 >=60 Units for eGFR value s are mL/mi n/1.7 3 The eGFR Calcu latio n has not been valid ated for patie nts under the age of 18. If test resul ts are displ ayed for a patie nt under the age of 18, disre jose that value . Not Available [facility] [address] [place] [address], [address], 06/16/2023 06:16:34 06/15/19 24 06/15/2023 COMP. METAB OLIC PANEL (14) BUN/creatini ne ratio 22 9-23 Not Available [facility] Department [address] [place] [address], [address], 06/16/2023 06:16:34 06/15/19 24 06/15/2023 COMP. METAB OLIC PANEL (14) sodium 146 mmol/ L 134-14 4 above high normal Not Available [facility] [address] [place], [address], 06/16/2023 06:16:34 06/15/19 24 06/15/2023 COMP. METAB OLIC PANEL (14) potassium 4.7 mmol/ L 3.5-5. 2 Not Available [facility] [address] [place], [address], 06/16/2023 06:16:34 06/15/19 24 06/15/2023 COMP. METAB OLIC PANEL (14) chloride 109 mmol/ L 96-106 above high normal Not Available [facility] [address] [place], [address], 06/16/2023 06:16:34 06/15/19 24 06/15/2023 COMP. METAB OLIC PANEL (14) carbon dioxide, total 24 mmol/ L 20-29 Not Available [facility] [address] [place], [address], 06/16/2023 06:16:34 06/15/19 24 06/15/2023 COMP. METAB OLIC PANEL (14) calcium 9.1 mg/dL 8.7-10 .2 Not Available [facility] [address] [place], [address], 06/16/2023 06:16:34 06/15/19 24 06/15/2023 COMP. METAB OLIC PANEL (14) protein, total 6.4 g/dL 6.0-8. 5 Not Available [facility] [address] [place], [address], 06/16/2023 06:16:34 06/15/19 24 06/15/2023 COMP. METAB OLIC PANEL (14) albumin 4.0 g/dL 4.0-5. 0 Not Available [facility] [address] [place], [address], 06/16/2023 06:16:34 06/15/19 24 06/15/2023 COMP. METAB OLIC PANEL (14) globulin, total 2.4 g/dL 1.5-4. 5 Not Available [facility] [address] [place], [address], 06/16/2023 06:16:34 06/15/19 24 06/15/2023 COMP. METAB OLIC PANEL (14) A/G ratio 1.7 1.2-2. 2 Not Available [facility] [address] [place] [address], [address], 06/16/2023 06:16:34 06/15/19 24 06/15/2023 COMP. METAB OLIC PANEL (14) bilirubin, total 0.2 mg/dL 0.0-1. 2 Not Available [facility] [address] [place] [address], [address], 06/16/2023 06:16:34 06/15/19 24 06/15/2023 COMP. METAB OLIC PANEL (14) alkaline phosphatase 61 IU/L 44-121 Not Available [facility] Department [address] [place] [address], [address], 06/16/2023 06:16:34 06/15/19 24 06/15/2023 COMP. METAB OLIC PANEL (14) AST (SGOT) 33 IU/L 0-40 Not Available [facility] Department [address] [place] [address], [address], 06/16/2023 06:16:34 06/15/19 24 06/15/2023 COMP. METAB OLIC PANEL (14) ALT (SGPT) 42 IU/L 0-32 above high normal Not Available [facility] [address] [place] [address], [address], 06/16/2023 06:16:34 06/15/19 24 06/15/2023 CBC, PLATE LET, NO DIFFE RENTI AL WBC 5.0 x10e3 /uL 3.4-10 .8 Not Available [facility] [address] [place], [address], 06/16/2023 06:16:34 06/15/19 24 06/15/2023 CBC, PLATE LET, NO DIFFE RENTI AL RBC 4.44 x10e6 /uL 3.77-5 .28 Not Available [facility] [address] [place], [address], 06/16/2023 06:16:34 06/15/1906/15/2023 CBC, PLATE LET, NO DIFFE RENTI AL hemoglobin 12.7 g/dL 11.1-1 5.9 Not Available [facility] [address] [place], [address], 06/16/2023 06:16:34 06/15/1906/15/2023 CBC, PLATE LET, NO DIFFE RENTI AL hematocrit 39.7 % 34.0-4 6.6 Not Available [facility] [address] [place], [address], 06/16/2023 06:16:34 06/15/1906/15/2023 CBC, PLATE LET, NO DIFFE RENTI AL MCV 89 fL 79-97 Not Available [facility] [address] [place], [address], 06/16/2023 06:16:34 06/15/1906/15/2023 CBC, PLATE LET, NO DIFFE RENTI AL MCH 28.6 pg 26.6-3 3.0 Not Available [facility] [address] [place], [address], 06/16/2023 06:16:34 06/15/1906/15/2023 CBC, PLATE LET, NO DIFFE RENTI AL MCHC 32.0 g/dL 31.5-3 5.7 Not Available [facility] [address] [place], [address], 06/16/2023 06:16:34 06/15/1906/15/2023 CBC, PLATE LET, NO DIFFE RENTI AL RDW 13.1 % 11.5-1 4.5 Not Available [facility] [address] [place], [address], 06/16/2023 06:16:34 06/15/19 24 06/15/2023 CBC, PLATE LET, NO DIFFE RENTI AL platelets 239 x10e3 /uL 150-45 0 Mean Plate let Volum e 11.3 fL 8.9-1 2.7 N Not Available [facility] [address] [place], [address], 06/16/2023 06:16:34 06/15/19 24 06/15/2023 CBC, PLATE LET, NO DIFFE RENTI AL NRBC 0 % 0-0 Not Available [facility] [address] [place], [address], 06/16/2023 06:16:34 Result Notes None recorded. Problems Name Problem SNOMED Code Status Onset Date Resolution Date Notes Provider Name and Address Organization Details Recorded Time Tinea capitis 8686598 Active 2020 Landen Rose PA-C Attn: Ayaka irwin,[address] [place], [address], [place] [facility] 1 10:11:50 Tobacco user 630382935 Active 2020 Landen Rose PA-C Attn: Ayaka irwin,[address] [place], [address], [place] [facility] 1 16:21:38 Anxiety 90121548 Active 2020 Landen Rose PA-C Attn: Ayaka irwin,[address] [place], [address], [place] [facility] 1 12:08:57 Morbid obesity 253097095 Active 2023 Kapil Belle MD Attn: Ayaka irwin,[address] [place], [address], [place] [facility] 4 11:31:38 Impacted cerumen of bilateral ears 0337501465486 108 Active 2023 Kapil Belle MD Attn: Ayaka irwin,[address] [place], [address], [place] [facility] 4 11:32:02 Family history of Thyroid disorder 381700344 Active 2023 Kapil Belle MD Attn: Jadpennie irwin,[address] [facility], [place], [address], [place] [facility] 4 11:32:23 History of anxiety state 597379909 Active 2023 Kapil Belle MD Attn: Ayaka dc,[address] [facility], [place], [address], [place] [facility] 4 11:33:25 Fatigue 41995114 Active 2023 Kapil Belle MD Attn: Ayaka dc,[address] [place], [address], [place] [facility] 4 11:35:10 Headache 80450479 Active 2023 Kapil Belle MD Attn: Ayaka dc,[address] [facility], [place], [address], [place] [facility] 4 11:37:54 Disorder of scalp 340928999 Active 2023 Kapil Belle MD Attn: Ayaka irwin,[address] [facility], [place], [address], [place] [facility] 4 11:38:17 Thyroid stimulating hormone level above reference range 454457860 Active 2023 Kapil Belle MD Attn: Ayaka dc,[address] [place], [address], [place] [facility] 4 06:37:45 Problem Notes None recorded. Medical Equipment None Reported. Allergies Allergen ID Allergen Name Allergen Category Reaction Reaction Severity Criticality Documentation Date Start Date Code Code System Note Provider Name and Address Organization Details Recorded Time 617488 amoxicill in medicatio n hives severe Not available 08/21/2020 723 RxNorm [place], [place] - [facility] 1 09:43:01 Medications Name Sig Start Date Stop Date [...] completed Not Available Not Available Not Available FE 06/26 (28) 1 mg-20 mcg (21)/75 [...] Available No t Available Vitals Date Recorded Heart rate Oxygen saturation Body height Body mass index (BMI) Body weight Systolic And Diastolic Provider Name and Address Organization Details Last Updated DateTime 4 78 /min 98 % 165.1 cm 47.3 kg/m2 472130. 23 g 126/84 mm[Hg] Julius Gupta [place] - [facility] 4 11:11:39 Date Recorded Body height Body mass index (BMI) Body mass index (BMI) [Percentile] Per age and sex Body weight Oxygen saturation Heart rate Body temperature Systolic And Diastolic Provider Name and Address Organization Details Last Updated DateTime 1 165.1 cm 37.3 kg/m2 98 % 607400. 69 g 96 % 87 /min 98.6 [degF] 118/68 mm[Hg] Lottie Edmond [place] 1 09:58:00 Date Recorded Body height Body mass index (BMI) Body weight Heart rate Oxygen saturation Systolic And Diastolic Provider Name and Address Organization Details Last Updated DateTime 5 165.1 cm 46.3 kg/m2 494135. 68 g 75 /min 98 % 118/77 mm[Hg] Davey Rose MA [facility] 5 17:09:11 Date Recorded Body height Oxygen saturation Heart rate Body mass index (BMI) Body weight Systolic And Diastolic Provider Name and Address Organization Details Last Updated DateTime 2 165.1 cm 97 % 73 /min 40.8 kg/m2 624895. 13 g 110/70 mm[Hg] Shae BellamyDESTINY lackey [facility] 2 10:46:46 Date Recorded Body height Provider Name an d Address Organization Details Last Updated DateTime 02/27/2021 165.1 cm oLttie Singleton MA [facility] 02/27/2021 11:49:30 Social History Question Answer Notes LastModified by Organizat ion Details LastModified Time Tobacco Smoking Status Former Smoker Shae Quezada MA null, [place] - [facility] 02/18/2022 10:45:08 Do You Have An Advance Directive? No Information not available 08/21/2020 Are You Blind Or Do You Have Difficulty Seeing? Yes Wears Glasses Information not available 08/21/2020 What Is Your Level Of Caffeine Consumption? Moderate Information not available 08/21/2020 Are You Deaf Or Do You Have Serious Difficulty Hearing? Yes Difficulty Hearing In Left Ear Information not available 08/21/2020 What Type Of Diet Are You Following? REGULAR Information not available 08/21/2020 Are There Any [...] Than A Year Information not available 08/21/2020 How Many Years Have You Used E-cigarettes Or Vape? 1 Information not available 08/21/2020 Sex: Female Functional Status Question Answer Note LastModified by Organizat ion Details LastModified Time Do you use any illicit or recreational drugs? No Information not available 08/21/2020 Do you or have you ever used any other forms of tobacco or nicotine? Yes Information not available 08/21/2020 What is your level of alcohol consumption? None Information not available 08/21/2020 Do you or have you ever used smokeless tobacco? Never used smokeless tobacco Information not available 08/21/2020 Are you currently employed? Yes Information not available 08/21/2020 Are you able to care for yourself independently? 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 Former user of electronic cigarettes pt. doesn't use anymore 06/15/23 Information not available 06/15/2023 What is your exercise level? Occasional Information not available 08/21/2020 Mental Status Question Answer Note LastModified by Organization D etails LastModified Time Do you feel stressed (tense, restless, nervous, or anxious, or unable to sleep at night)? [id number] Information not available 08/21/2020 Family History Relationship Description Onset Age of this Age Resolved Age Notes LastModified by Organization Details LastModified Time Father Asthma [email or web address] Not availabl e 08/21/2020 09:45:11 Father Disorder of thyroid gland [email or web address] Not available 2023 11:27:26 Mother Depressive disorder [email or web address] Not available 08/05 09:45:22 Mother Disorder of thyroid gland [email or web address] Not available 2023 11:27:26 Sister Anxiety [email or web address] Not availab le 08/21/2020 09:45:37 Medical History Condition Response Coronary Artery Disease N High Blood Pressure N Atrial Fibrillation N Kidney or Bladder Problems N Thyroid Problems N GI Problems N Depression N COPD N Blood Clots N Eating Disorder N Anemia N Heart Attack (SC) N Anxiety Disorder N Diabetes N Muscle, Joint, or Bone Problems N Seizures/Epilepsy N Acid Reflux (GERD) N Cancer N Stroke N Asthma N Allergies Y ADHD N Substance Abuse N High Cholesterol N Hepatitis N Liver Disease N Schizophrenia N Headaches N Osteoporosis N Heart Failure N Gynecological History Statement/Question Response Date of LMP 06/09/2023 Obstetrics History GPAL:G 0 P 0 0 0 0 Immunizations Vaccine Type Date Status Note Provider Nam e and Address Organization Details Recorded Time Hib, unspecified formulation 1 completed [place] - [facility] 09/05/2024 17:05:07 Hib, unspecified formulation 2 completed [place] [facility] 09/05/2024 17:05:07 Hib-Hep B 1 completed [place]SETINY [place] [facility] 09/05/2024 17:05:07 IPV 1 completed [place] [facility] 09/05/2024 17:05:07 IPV 1 completed [place] [facility] 09/05/2024 17:05:07 pneumococcal conjugate PCV 7 1 completed [place] [facility] 09/05/2024 17:05:07 Tdap 6 completed [place] [facility] 09/05/2024 17:05:07 Tdap 2 completed [place] [facility] 09/05/2024 17:05:07 Influenza, split virus, trivalent, PF 5 completed [place] [facility] 09/05/2024 17:05:07 DTaP 1 completed Davey [place] [facility] 09/05/2024 17:05:07 DTaP 1 completed [place] [facility] 09/05/2024 17:05:07 Influenza, split virus, quadrivalent, PF 2 completed [place] [facility] 09/05/2024 17:05:07 Past Encounters Encounter ID Performer Location Encounter Start Date Encounter Closed Date Diagnosis/Indication Diagnosis SNOMED-CT Code Diagnosis ICD10 Code Diagnosis IMO Codes Diagnosis Note [id number] MD Julito Aleman (Adult Med) [address] [place] [address] 08/21/2020 09:27:48 08/21/2020 10:20:14 Tinea capitis 3653139 B35.0 Tobacco user 844419980 Z 72.0 [id number] MD Julito Aleman (Adult Med) [address] [place] [address] 02/27/2021 11:25:23 02/27/2021 13:57:11 Tinea capitis 2098796 B35.0 Tobacco user 348682116 Z 72.0 Anxiety 34368727 F41.9 [id number] Flaco Abdul MD [facility] (Adult Med) [address] [place] [id number] 02/18/2022 10:34:24 02/19/2022 08:43:22 Anxiety 77165365 F41.9 Tinea capitis 1286803 B3 5.0 Obesity 641358283 E66.9 Acute otitis externa 302 09729 H60.269 [id number] MD Julito Contreras (Adult Med) [address] [place] [address] 06/15/2023 10:54:30 06/18/2023 16:48:50 Morbid obesity 271167422 E66.01 Family his tory of Thyroid disorder 837785898 Z83.49 Anxiety 78663835 F41.9 Fatigue 58775816 R53.83 History of anxiety state 864453280 F41.9 Impacted c erumen of bilateral ears 8277864739 733934 H61.23 Disorder of scalp 127117 006 L98.9 [id number] MD Julito Contreras (Adult Med) [address] [place] [address] 09/05/2024 16:50:35 09/07/2024 15:11:20 Morbid obesity 410917565 E66.01 Will refer to endocrinol ogist in her insurance plan Health Concerns Section Related Observation LastModified by Organization Detai ls LastModified Time None Recorded Concern Status LastModified by Organization Details LastModified Time None Recorded Advance Directives Directive N: Payers Insurance Date Sequence Insurance Name Policy Number Policy Lau Covered Member ID Lau Member ID Guarantor Name 09/06/[address] [facility] ON OR AFTER 05/07/2020 (MEDICAID REPLACEMENT - HMO) Shant Torres [id number] Shant Torres 09/06/[address] 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 has rash , scaly debris in scalp Landen Rose PA-C Attn: Accounting[address] [facility], [place], [address], [place] [facility] 08/27/2020 16:23:02 02/27/2021 text/html ROS as noted in the HPI anxiety ... went to ED .. maternal grandma in 2017 .... a lot of stress lately . Landen Rose PA-C Attn: Accounting[address] [facility], [place], [address], [place] [facility] 02/27/2021 21:23:32 02/18/2022 text/html ROS as noted in the HPI Shant Torres is here today for a [...] self. Landen Rose PA-C Attn: Accounting,[address] [facility], [place], [address], [place] [facility] 02/19/2022 09:54:37 06/15/2023 text/html Here for several concerns. Weight loss, anxiety and scalp lesions Kapil Belle MD Attn: Accounting[address] [facility], [place], [address], [place] [facility] 06/15/2023 11:44:28 09/05/2024 text/html Here because of difficulty losing weight. She has tried several options but has been able to lose only 10 lbs Kapil Belle MD Attn: Accounting[address] [facility], [place], [address], [facility] - [facility] 09/05/2024 17:45:11 OBGyn Episode No OBEpisode recorded.
--- OUTSIDE RECORDS SUMMARY | 2025-05-27 09:45 | XMS_ITS | Clinical Summary ---
Author Organization [facility] Address [address] [place] [id number] Care Team Providers Care Boiling Off Winder Name Role Phone Unavailable Primary Care Provider [...]
--- OUTSIDE RECORDS SUMMARY | 2025-05-27 09:45 | XMS_ITS | Clinical Summary ---
Author Organization [facility] Address [address] [place] [address] Care Team Providers Care Donor Services Coordinator Name Role Phone Unknown, Notinfile Primary Care Provider Unavail able Arati Massey MD Unavailable [phone] Allergies Active Allergy Reactions Criticality Noted Date [...] 01/05/2022 Assessment & Plan (04/18/2021 8:06 AM AIR QUALITY ENGINEER): -dating US completed today. -PNL ordered. 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 Never 01/05/2022 Comments No Sex and Gender Information Value Date Recorded Sex Assigned at Not on file Legal Sex Female 2:36 AM AIR QUALITY ENGINEER Gender Identity Not on file Sexual Orientation [...] N Livin g Cruz prince Complications:None Delivery Location:[facility] 2019 Para 10h 00m 3.118 kg (6 lb 14 oz) F Epidur al N Livin g Israeldevinmarga Beer Complications:None Delivery Location:[facility] 2021 Term 37w 5d 2h 12m 2h 07m/0h 02m/0h 03m 3.555 kg (7 lb 13.4 oz) F Vag-S pont Epidur al,Loc al N Livin g 9 9 ARIN AY,GIR MARIANOORXIOMY N Carlita bruno, Juanito ingram MD Complications:None Delivery Location:[facility] ([facility]) Last Filed Vital Signs Vital Sign Reading Time Taken Comments Blood Pressure 100/80 01/18/2023 9:36 AM CDT Pulse 80 01/18/2023 9:36 AM CDT Temperature 36.9 C (98.5 F) 04/17/2022 11:33 AM AIR QUALITY ENGINEER Respiratory Rate 18 04/17/2022 11:50 AM AIR QUALITY ENGINEER Oxygen Saturation 99% 04/17/2022 11:50 AM AIR QUALITY ENGINEER Inhaled Oxygen Concentration - - Weight 125.2 [...] HEPATITIS C ANTIBODY Routine 05/13/2021 12:50 PM AIR QUALITY ENGINEER Encounter for supervision of other normal in first trimester 9 weeks gestation of from Last 3 Months or Most Recently Relevant to Health Maintenance Results * Pap with reflex to High Risk HPV (01/05/2022 12:06 PM CDT) CLINICAL INFORMATION: [facility] Comment:SCREENING LMP [facility] Comment:01-01-22 Previous Pap [facility] Comment:INFORMATION NOT PROV IDED Prev. Bx [facility] [place] Comment:INFORMATION NOT PROV IDED SOURCE: [facility] Comment:Cervix, Endocervix Pap, specimen adequacy [facility] Comment: Satisfactory for evaluation. Endocervical/transformation zone component present. HPV interp [facility] Comment:Negative for intraep ithelial lesion or malignancy. COMMENTS [facility] Comment: This Pap test has been evaluated with computer assisted technology. Hospice Case Manager Camilo [facility] Comment: CBN, CT(ASCP) CT Screening location: [address] [address] Comment [facility] Comment: EXPLANATORY NOTE: The Pap is [...] MD LAB CYTOLOGY ORDERA BLES Final Result [address] [address] * Hepatitis C antibody (05/13/2021 12:50 PM AIR QUALITY ENGINEER) Hep C Ab Nonreactive Nonreactive AJAY ASCENCIO [...] last revised on 2019. Testing performed by: [facility], [address] [place] [address], [place] [address] Blood 05/13/2021 12:5 0 PM AIR QUALITY ENGINEER 05/14/2021 9:39 AM AIR QUALITY ENGINEER us Aarti Massey MD LAB MICROBI OLY - GENERAL ORDERABLES Edited Result - Final [facility] [place] [address] from Last 3 Months or Most Recently Relevant to Health Maintenance Insurance [place] [address] [address] [place] [phone] Advance Directives For more information, please contact: [phone] * Full Code (Latest Code Status on File) Date Activated Date Inactivated Comments 10/21/2021 10:53 PM 10/23/2021 6:04 PM * Full Code Date Activated Date Inactivated Comments 10/21/2021 12:56 PM 10/21/2021 10:53 PM Full CPR i n case of cardiopulmonary arrest Care Teams Donor Services Coordinator Relationship Specialty Start Date End Date Unknown, Notinfile PCP - General 10/13/21 Aarti Massey MD Consulting Physician Obstetrics and Gynecology 04/17/22
--- OUTSIDE RECORDS SUMMARY | 2025-05-27 09:45 | XMS_ITS | Clinical Summary ---
Author Organization [facility] Address [address] [place] [address] Phone Care Team Providers Care General Medical Practitioner Name Role Phone Provider, Unknown Primary Care [...] age to complete this topic Care Teams General Medical Practitioner Relationship Specialty Start Date End Date Provider, Unknown UNKNOWN PCP - General 01/26/24
--- OUTSIDE RECORDS SUMMARY | 2025-05-27 09:45 | XMS_ITS | Clinical Summary ---
Author Organization [facility] Address [address] [place] [address] Care Team Providers Care Corrugator Name Role Phone Arturo Lion MD Primary Care Provider Source Comments [facility],non-owned Affiliates and Associated Physician Practices is amultiple site organization consisting of ambulatory clinics and hospital sitesin [place], [place], [place] and [place]. This disclosure is being madepursuant to the Care Everywhere program and may not contain all information available regarding this patient. Last updated 18.[facility] [employer] Allergies Active Allergy Reactions Criticality Noted Date [...] on file Legal Sex Female 9:28 AM PCTS Gender Identity Not on file Sexual Orientation [...] complete this topic Insurance [employer] Care Teams Corrugator Relationship Specialty Start Date End Date Arturo Lion MD [employer] [address] [place] [address] PCP - General Family Medicine 07/14/12
== END 2025-05-27 09:55 | disposition left against medical advice (07) ==
PROVIDERS: PCP Internal Medicine Gastroenterology
DX: M25.561 Pain in right knee (principal); M25.562 Pain in left knee
CPT/HCPCS: 99199